=== PATIENT | female | born 1955 | race Caucasian/White ===

== ENCOUNTER 2020-06-03 11:29 | Emergency (ER) | payer MEDICARE, OTHER, SELFPAY ==
--- NOTE | ~2020-06-03 | XR_ITS ---
EXAMINATION: XR shoulder RT min 2V DATE: 06/03/2020 12:28 INDICATION: Right shoulder pain. TECHNIQUE: 4 views of right shoulder were obtained. COMPARISON: None. FINDINGS: Bone alignment is normal. No fracture. There is mild osteoarthritis of acromioclavicular feliciano int and glenohumeral joint. A left internal jugular port is seen with tip at the superior cavoatrial junction. IMPRESSION: 1. Mild polyarticular osteoarthritis. Reviewed, dictated and finalized at location A.
[2020-06-03 11:31] VITALS: BP 167/75; PULSE 69; RESP 19; TEMP 36.1; O2SAT 100
--- NOTE | 2020-06-03 12:01 | ED.UPPEXIN ---
HPI - Extremity Injury (Upper) General Chief Complaint: Extremity Injury, Upper Stated Complaint: shoulder injury Time Seen by Provider: 06/03/20 11:38 Source: patient Mode of arrival: ambulatory Limitations: no limitations History of Present Illness HPI narrative: This is a 65 year old female that presents to the ER for right shoulder pain x 1 week. Reports she was gardening and lost her balance and fell and caught herself with her right arm. Reports since she has had right shoulder pain. Worse with movement and relieved with rest. Took her home [place] and muscle relaxer with relief. Denies other injuries, hitting her head, loss of consciousness, or numbness. Related Data Home Medications Medication Instructions Recorded Confirmed calcium carbonate 600 mg calcium 600 mg PO DAILY 01/31/20 (1,500 mg) tablet celecoxib 200 mg capsule 200 mg PO DAILY 01/31/20 cetirizine 10 mg tablet 10 mg PO DAILY 01/31/20 cholecalciferol (vitamin D3) 250 10,000 unit PO DAILY 01/31/20 mcg (10,000 unit) capsule citalopram 40 mg tablet 30 mg PO DAILY tablet 01/31/20 clonazepam 0.5 mg tablet 0.5 mg PO DAILY 01/31/20 cromolyn 4 % eye drops 1 drop EACH EYE QID 01/31/20 cyclobenzaprine 10 mg tablet 10 mg PO BID tablet 01/31/20 docusate sodium 100 mg tablet 100 mg PO DAILY 01/31/20 fluticasone propionate 50 1 spray NASAL DAILY 01/31/20 mcg/actuation nasal spray,suspension guaifenesin 600 mg tablet, 600 mg PO BID 01/31/20 extended release 12 hr hydrocodone 5 mg-acetaminophen 325 1 tablet PO Q8H PRN 01/31/20 mg tablet hydrocortisone acetate 25 mg 25 mg RECTAL DAILY PRN 01/31/20 rectal suppository levothyroxine 75 mcg tablet 75 mcg PO DAILY 01/31/20 lidocaine 3 % topical cream 1 applic TOPICAL DAILY PRN gm 01/31/20 losartan 100 mg tablet 100 mg PO DAILY 01/31/20 nifedipine 90 mg tablet,extended 90 mg PO DAILY 01/31/20 release olopatadine 0.2 % eye drops 1 drop EACH EYE DAILY 01/31/20 omeprazole 40 mg capsule,delayed 40 mg PO DAILY 01/31/20 release promethazine 25 mg tablet 25 mg PO TID PRN 01/31/20 propranolol 160 mg capsule,24 160 mg PO DAILY 01/31/20 hr,extended release ropinirole 0.5 mg tablet 0.5 mg PO DAILY tablet 01/31/20 vit cap PO 01/31/20 C,E,zinc,Us-nqokz-8-lutein-zeaxanthin 250 mg-2.5 mg-0.5 mg capsule zolpidem 5 mg tablet 5 mg PO ONCE PRN 01/31/20 Allergies Allergy/AdvReac Type Severity Reaction Status Date / Time aripiprazole Allergy Severe Other Verified 03/23/18 14:33 pregabalin Allergy Severe Other Verified 03/23/18 14:33 azathioprine Allergy Intermediate NAUSEOUS,BLEEDING, Verified 06/11/13 15:03 FEBRILE bupropion Allergy Intermediate Other Verified 03/23/18 14:33 amitriptyline Allergy Mild Swelling Verified 01/30/20 15:26 duloxetine Allergy Mild Swelling Verified 01/30/20 15:26 AZATHIOPRINE SODIUM Allergy Intermediate NAUSEOUS,BLEEDING, Uncoded 06/11/13 15:03 FEBRILE Review of Systems Review of Systems: Narrative: CONSTITUTIONAL: Denies fever CARDIOVASCULAR: Denies chest pain MUSCULOSKELETAL: Reports joint pain, and myalgia. NEUROLOGIC: Denies numbness All systems reviewed & are unremarkable except as noted in HPI and below PMFSH Past Medical History Medical History (Updated 06/03/20 @ 13:00 by Nicole Medrano PA-C) Allergic rhinitis Anemia Anxiety Blood in urine Breast lump or mass Cervicalgia Depression Eczema Edema Fibromyalgia GERD (gastroesophageal reflux disease) Hemorrhoids High cholesterol Hypertension Hypothyroidism Insomnia Lumbago Osteoarthritis, knee Osteopenia Ovarian cyst, left Palpitation Polymyalgia Type 2 diabetes mellitus Surgical History Surgical History (Updated 01/31/20 @ 14:20 by Sulaiman Hussein CMA) History of hysterectomy History of partial mastectomy of both breasts Family History Family History (Updated 01/30/20 @ 15:36 by Sulaiman Hussein CMA) Other Cerebrovascular accident Heart disease Social
[2020-06-03 13:29] VITALS: BP 132/60; PULSE 76; RESP 18; O2SAT 99
== END 2020-06-03 13:32 | disposition home or self-care (01) ==
PROVIDERS: Emergency Provider Family Medicine
DX: M25.511 Pain in right shoulder (principal); Z86.2 Personal history of diseases of the blood and blood-forming organs and certain disorders involving the immune mechanism; M79.7 Fibromyalgia; K21.9 Gastro-esophageal reflux disease without esophagitis; E78.00 Pure hypercholesterolemia, unspecified; I10 Essential (primary) hypertension; E03.9 Hypothyroidism, unspecified; M17.10 Unilateral primary osteoarthritis, unspecified knee; M19.011 Primary osteoarthritis, right shoulder; E11.9 Type 2 diabetes mellitus without complications; M85.80 Other specified disorders of bone density and structure, unspecified site; M35.3 Polymyalgia rheumatica; F41.9 Anxiety disorder, unspecified; F32.9 Major depressive disorder, single episode, unspecified
CPT/HCPCS: 73030; 99283

== ENCOUNTER 2021-05-25 13:30 | Outpatient (CLI) | payer MEDICARE, OTHER, SELFPAY ==
[2021-05-25 14:24] LABS: Cholesterol 146 mg/dL (0-200); HDL Direct 39 mg/dL; Triglycerides 226 mg/dL (<150)
[2021-05-25 14:35] LABS: LDL Cholesterol Direct 64 mg/dL
[2021-05-25 15:31] LABS: Folic Acid 14.6 ng/mL (2.76->20)
[2021-05-25 17:49] LABS: Vitamin D 25 Hydroxy 57.1 ng/mL
== END 2021-05-25 13:31 | disposition home or self-care (01) ==
LOC: ANHLAB 13:38
PROVIDERS: PCP Internal Medicine; Visit Provider Physician Assistant
DX: R53.83 Other fatigue (principal); E78.5 Hyperlipidemia, unspecified; E55.9 Vitamin D deficiency, unspecified
CPT/HCPCS: 36415; 80061; 82306; 82607; 82746; 84443

== ENCOUNTER 2021-07-28 17:20 | Outpatient (CLI) | payer MEDICARE, OTHER, SELFPAY ==
[2021-07-28 18:34] LABS: Free T4 Free Thyroxine 1.24 ng/mL (0.78-2.19)
== END 2021-07-28 17:21 | disposition home or self-care (01) ==
LOC: ANHLAB 17:25
PROVIDERS: PCP Internal Medicine; Visit Provider Physician Assistant
DX: E03.9 Hypothyroidism, unspecified (principal)
CPT/HCPCS: 36415; 84439; 84443

== ENCOUNTER 2021-08-19 | Day surgery (SDC) | payer MEDICARE, OTHER, SELFPAY ==
[2021-08-10 10:44] VITALS: BMI 38.5
[2021-08-19 06:12] VITALS: BP 138/69; PULSE 80; RESP 18; TEMP 35.9; O2SAT 98; BMI 37.0
--- NOTE | 2021-08-19 06:47 | PM.HPGS ---
History of Present Illness History of Present Illness Consent: Risks, benefits, and alternatives have been discussed and questions answered. Patient agrees to proceed with procedure. Chief complaint: family hx malignant CA Narrative: Lakia Barton is a 66 year old female Her for colon cancer screening. She has history of breast cancer and having markers that show increased risk for other malignancies Review of Systems Review of Systems: All systems reviewed & are unremarkable except as noted in HPI and below PMFSH Past Medical History Medical History Allergic rhinitis Anemia Anxiety Blood in urine Body mass index (BMI) of 37.0 to 37.9 in adult Breast cancer Breast lump or mass Cervicalgia Depression Deviated septum Eczema Edema Fibromyalgia GERD (gastroesophageal reflux disease) Hemorrhoids High cholesterol Hypertension Hypothyroidism Insomnia Lumbago Osteoarthritis, knee Osteopenia Ovarian cyst, left Palpitation Polymyalgia Type 2 diabetes mellitus Surgical History Surgical History History of cataract surgery History of hysterectomy History of partial mastectomy of both breasts History of removal of ovarian cyst History of surgical removal of meniscus of knee History of tonsillectomy Family History Family History Father Diabetes mellitus Hypertension Heart disease Cerebrovascular accident Mother Hypertension Depression Anxiety Sibling Anxiety Depression Hypertension Social History Social History Smoking status: Never smoker Alcohol intake: never Substance use: never Living arrangements: alone Gender identity (if verbalized by the patient): Female Spiritual care concerns: No Meds Home Medications and Allergies Home Medications Medication Instructions Recorded Confirmed Type calcium carbonate 600 mg calcium 600 mg PO DAILY 01/31/20 08/19/21 History (1,500 mg) tablet cetirizine 10 mg tablet 10 mg PO DAILY 01/31/20 08/19/21 History cholecalciferol (vitamin D3) 250 10,000 unit PO DAILY 01/31/20 08/19/21 History mcg (10,000 unit) capsule citalopram 40 mg tablet 30 mg PO DAILY tablet 01/31/20 08/19/21 History cromolyn 4 % eye drops 1 drop EACH EYE QID 01/31/20 08/19/21 History cyclobenzaprine 10 mg tablet 10 mg PO BID PRN tablet 01/31/20 08/19/21 History losartan 100 mg tablet 100 mg PO DAILY 01/31/20 08/19/21 History nifedipine 90 mg tablet,extended 90 mg PO DAILY 01/31/20 08/19/21 History release olopatadine 0.2 % eye drops 1 drop EACH EYE DAILY 01/31/20 08/19/21 History promethazine 25 mg tablet 25 mg PO TID PRN 01/31/20 08/19/21 History propranolol 160 mg capsule,24 160 mg PO DAILY 01/31/20 08/19/21 History hr,extended release ropinirole 0.5 mg tablet 0.5 mg PO DAILY tablet 01/31/20 08/19/21 History anastrozole 1 mg tablet 1 mg PO DAILY 06/09/20 08/19/21 History carboxymethylcellulose sodium 0.5 1 drp EACH EYE BID 04/27/21 08/19/21 History % eye drops simvastatin 10 mg tablet 10 mg PO DAILY 04/27/21 08/19/21 History hydrocortisone acetate 25 mg 25 mg RECTAL DAILY PRN #12 ea 06/21/21 08/19/21 Rx rectal suppository hydrocodone 5 mg-acetaminophen 325 1 tablet PO Q8H PRN #45 tablet 06/29/21 08/19/21 Rx mg tablet clonazepam 0.5 mg tablet 0.5 mg PO DAILY #90 tablet 07/21/21 08/19/21 Rx diclofenac sodium 1 % topical gel 2 g TOPICAL QID PRN #100 g 07/21/21 08/19/21 Rx docusate sodium 100 mg tablet 100 mg PO QHS #90 tablet 07/21/21 08/19/21 Rx fluticasone propionate 50 2 spray NASAL DAILY #48 g 07/21/21 08/19/21 Rx mcg/actuation nasal spray,suspension guaifenesin 600 mg tablet, 600 mg PO BID PRN #180 tablet 07/21/21 08/19/21 Rx extended release 12 hr lidocaine 3 % topical cream 1 applic TOPICAL DAILY PRN #85 g 07/21/21 0
[2021-08-19] MEDS: LACTATED RINGERS 1,000 ML 150 ML IV CONT (06:49)
[2021-08-19 06:50] LABS: Glucose Point of Care 214 mg/dl (65-105)
--- NOTE | 2021-08-19 07:10 | WPDANESEPPF ---
Anes - Initial Pre Proc Eval Procedure: Operation Date: 08/19/21 07:30 Proposed Procedures p Screening Colonoscopy - Singh Birmingham MD Date/Time: 08/19/21 07:10 Surgeon: Singh Birmingham MD Pre Op Diagnosis: family hx malignant CA Patient Data Age: 66 Gender: F Height: 1.65 m Weight: 101.1 kg Last Vital Signs Temp 96.6 F L 08/19/21 06:12 Pulse 80 08/19/21 06:12 Resp 18 08/19/21 06:12 BP 138/69 08/19/21 06:12 Pulse Ox 98 08/19/21 06:12 Allergies Allergy/AdvReac Type Severity Reaction Status Date / Time aripiprazole Allergy Severe Other Verified 08/19/21 06:23 pregabalin Allergy Severe Other Verified 08/19/21 06:23 adhesive tape Allergy Intermediate Rash Verified 08/19/21 06:23 azathioprine Allergy Intermediate NAUSEOUS,BLEEDING, Verified 08/19/21 06:23 FEBRILE bupropion Allergy Intermediate Other Verified 08/19/21 06:23 amitriptyline Allergy Mild Swelling Verified 08/19/21 06:23 duloxetine Allergy Mild Swelling Verified 08/19/21 06:23 AZATHIOPRINE SODIUM Allergy Intermediate NAUSEOUS,BLEEDING, Uncoded 08/19/21 06:23 FEBRILE Home Medications Medication Instructions Recorded Confirmed Type calcium carbonate 600 mg calcium 600 mg PO DAILY 01/31/20 08/19/21 History (1,500 mg) tablet cetirizine 10 mg tablet 10 mg PO DAILY 01/31/20 08/19/21 History cholecalciferol (vitamin D3) 250 10,000 unit PO DAILY 01/31/20 08/19/21 History mcg (10,000 unit) capsule citalopram 40 mg tablet 30 mg PO DAILY tablet 01/31/20 08/19/21 History cromolyn 4 % eye drops 1 drop EACH EYE QID 01/31/20 08/19/21 History cyclobenzaprine 10 mg tablet 10 mg PO BID PRN tablet 01/31/20 08/19/21 History losartan 100 mg tablet 100 mg PO DAILY 01/31/20 08/19/21 History nifedipine 90 mg tablet,extended 90 mg PO DAILY 01/31/20 08/19/21 History release olopatadine 0.2 % eye drops 1 drop EACH EYE DAILY 01/31/20 08/19/21 History promethazine 25 mg tablet 25 mg PO TID PRN 01/31/20 08/19/21 History propranolol 160 mg capsule,24 160 mg PO DAILY 01/31/20 08/19/21 History hr,extended release ropinirole 0.5 mg tablet 0.5 mg PO DAILY tablet 01/31/20 08/19/21 History anastrozole 1 mg tablet 1 mg PO DAILY 06/09/20 08/19/21 History carboxymethylcellulose sodium 0.5 1 drp EACH EYE BID 04/27/21 08/19/21 History % eye drops simvastatin 10 mg tablet 10 mg PO DAILY 04/27/21 08/19/21 History hydrocortisone acetate 25 mg 25 mg RECTAL DAILY PRN #12 ea 06/21/21 08/19/21 Rx rectal suppository hydrocodone 5 mg-acetaminophen 325 1 tablet PO Q8H PRN #45 tablet 06/29/21 08/19/21 Rx mg tablet clonazepam 0.5 mg tablet 0.5 mg PO DAILY #90 tablet 07/21/21 08/19/21 Rx diclofenac sodium 1 % topical gel 2 g TOPICAL QID PRN #100 g 07/21/21 08/19/21 Rx docusate sodium 100 mg tablet 100 mg PO QHS #90 tablet 07/21/21 08/19/21 Rx fluticasone propionate 50 2 spray NASAL DAILY #48 g 07/21/21 08/19/21 Rx mcg/actuation nasal spray,suspension guaifenesin 600 mg tablet, 600 mg PO BID PRN #180 tablet 07/21/21 08/19/21 Rx extended release 12 hr lidocaine 3 % topical cream 1 applic TOPICAL DAILY PRN #85 g 07/21/21 08/19/21 Rx metformin 500 mg tablet 500 mg PO BID #180 tablet 07/21/21 08/19/21 Rx omeprazole 40 mg capsule,delayed 40 mg PO DAILY #90 cap 07/21/21 08/19/21 Rx release vit 1 cap PO DAILY cap 07/21/21 08/19/21 History C,E,zinc,Fw-oobgz-4-lutein-zeaxanthin 250 mg-2.5 mg-0.5 mg capsule zolpidem 5 mg tablet 5 mg PO QHS PRN #60 tablet 07/21/21 08/19/21 Rx levothyroxine 125 mcg tablet 125 mcg PO DAILY #30 tablet 07/30/21 08/19/21 Rx Laboratory Tests 08/19/21 06:40 POC Capillary Glucose 214 mg/dl H mg/dl (65-105) Patient hx anesthesia problems: none Family hx anesthesia problems: none PMFSH Past Medical History Medical History Allergic rhinitis Anemia Anxiety Blood in urine Body mass index (BMI) of 37.0 to 37.9 in adult Breast cancer Breast l
[2021-08-19 07:48] VITALS: BP 117/71; PULSE 70; RESP 16; O2SAT 97
[2021-08-19 07:58] VITALS: BP 129/78; PULSE 72; RESP 16; O2SAT 97
[2021-08-19 08:08] VITALS: BP 118/61; PULSE 72; RESP 20; O2SAT 97
--- NOTE | 2021-08-19 08:52 | SUR.PHASEII ---
0815 unable to reach patients' driver/refuse collector, awaiting call back and ride home
== END 2021-08-19 08:44 | disposition home or self-care (01) ==
PROVIDERS: PCP Internal Medicine; Visit Provider Internal Medicine Gastroenterology
PROC: 0DJD8ZZ Inspection of Lower Intestinal Tract, Via Natural or Artificial Opening Endoscopic (ICD-10-PCS; CPT 45378; principal; 2021-08-19 07:30)
DX: Z12.11 Encounter for screening for malignant neoplasm of colon (principal); Z85.3 Personal history of malignant neoplasm of breast; Z15.09 Genetic susceptibility to other malignant neoplasm; K21.9 Gastro-esophageal reflux disease without esophagitis; I10 Essential (primary) hypertension; E78.00 Pure hypercholesterolemia, unspecified; M79.7 Fibromyalgia; F41.8 Other specified anxiety disorders; E03.9 Hypothyroidism, unspecified; E11.9 Type 2 diabetes mellitus without complications; Z79.811 Long term (current) use of aromatase inhibitors; Z79.84 Long term (current) use of oral hypoglycemic drugs; Z79.891 Long term (current) use of opiate analgesic
CPT/HCPCS: G0121; 82948; J2001; J2704; J7120

== ENCOUNTER 2021-10-25 11:33 | Outpatient (CLI) | payer MEDICARE, OTHER, SELFPAY ==
[2021-10-25 12:34] LABS: Free T4 Free Thyroxine 1.65 ng/mL (0.78-2.19)
== END 2021-10-25 11:34 | disposition home or self-care (01) ==
LOC: ANHLAB 11:35
PROVIDERS: PCP Internal Medicine; Visit Provider Physician Assistant
DX: E03.9 Hypothyroidism, unspecified (principal)
CPT/HCPCS: 36415; 84439; 84443

== ENCOUNTER 2022-05-25 14:30 | Outpatient (RCR) | payer MEDICARE, OTHER, SELFPAY ==
[2022-04-28 12:25] VITALS: BP_SYST 150
--- NOTE | 2022-04-28 13:28 | PTOPEVAL ---
PHYSICAL THERAPY EVALUATION AND PLAN OF CARE 04-28-22 Thank you for referring Lakia Barton to [facility], for the diagnosis of L shoulder pain. Reyna is scheduled to be seen for therapy? 2 x/week for 4 weeks. Please review, sign, date and return this plan of care SNOW. I agree with and certify that the following plan of care is medically necessary. Referring Physician Date Attending Provider: Christiano So MD Past Medical History Source of Past Medical History Recalled from Previous Visit, Confirmed with Patient/Family Neurological History Hx Neurological Disorders No Significant History Cardiovascular History Hx Hypercholesterolemia Yes: med control Hx Hypertension Yes: meds control Respiratory History Hx Respiratory Disorders No Significant History Gastrointestinal History Hx Gastroesophageal Reflux Disease Yes Genitourinary History Hx Genitourinary Disorders No Significant History Musculoskeletal History Hx Arthritis Yes: hands, arms, knees, everywhere Hx Fibromyalgia Yes Hx Orthopedic Surgery Yes: Right knee arthroscopy X2 Hx Other Musculoskeletal Disorders Yes: polymyalgia---all over effected; fall with R clavicle fracture Hematological History Hx Anemia Yes Endocrine History Hx Diabetes Yes: meds Hx Hypothyroidism Yes: meds HEENT History Hx Cataracts Yes: Bilateral cataract removal with lens implantation Integumentary History Hx Eczema Yes Psychosocial History Hx Anxiety Yes Hx Depression Yes Pain History Has Past Pain Affected Your Daily Life Yes Anesthesia History Hx Anesthesia Reactions No Significant History Other History Hx Cancer Yes: Breast Cancer- B mastectomy 2019 Hx Chemotherapy Yes Hx Implanted Device Yes: Left chest Port, Hx Radiation Therapy Yes Hx Other Medical Conditions Yes: B UE lymphedema Evaluation Information Diagnosis pain L shoulder Onset March 27, 2022 Subjective Information gradual increase in pain in Query Text:As Reported By Patient/ shoulder, problems pulling up Family blanket in bed and reaching out to the side table for drink, could not lift arm; had injection- helped shoulder pain Diagnostic Tests X-Rays For This Problem Yes: per report mild A-C degenerative changes Prior Level of Function Activity Level (Last 3 Months) Occupation
--- NOTE | 2022-05-16 13:46 | PCPTNOTE ---
Patient called & cancelled scheduled appointment this date due to she hasn't slept all night & needs to sleep.
--- NOTE | 2022-05-23 13:30 | PCPTNOTE ---
Patient called & cancelled scheduled appointment this date due to her feet hurting.
--- NOTE | 2022-05-25 15:08 | PTOPEVAL ---
PHYSICAL THERAPY DISCHARGE REPORT 05-25-22 Refer to the clinical summary below for her status today, compared to the initial evaluation. She has improved with increased strength and ROM of her L shoulder, but continues to have pain. Discharge PT at this time for her L shoulder from an orthopedic view, but PT will continue for lymphedema treatment under orders from her oncologist. Thank you for referring Lakia Barton to [facility].? Please review, sign, date and return this Discharge report SNOW. I agree with and certify that the following plan of care is medically necessary. Referring Physician Date Attending Provider: Christiano So MD Subjective Information Reyna reports: shoulder is Query Text:As Reported By Patient/ slightly better, but never Family goes away--little better or worse, but always there; is doing the home exercises; can reach up with L arm to get to kitchen cabinet; can reach out to the side for her drink on the side table; feels like shoulder treatment is best it is going to be--need to get the lymphedema treatment for her shoulder; Pain Assessment Pain Scale Pain Scale Used Numeric (1 - 10) Self Report Pain Assessment Left Shoulder(s) Reported Pain Level 2 Radicular Pain Location sometimes feels like bone hurting Pain Frequency Chronic,Continuous Other Pain Description crunching, crepitus, sharp pain; into neck and upper traps Lowest Pain Intensity 1 Greatest Pain Intensity 8 Other Pain Aggravating Factors does not matter what she does- -hurts sometimes without doing anything Pain Behaviors Grimacing,Guarding Additional Pain Score Comments reports chronic pain/ fibromyalgia pain--flared up and having a bad day today; discussed aquatic exercise as a method of exercise and fitness; she has ordered a swim spa for her home--not sure when they are going to start it; and has done water exercises in the past; Interventions Used Interventions Used By Clinicians Education,Exercise Pain Relief Interventions Used By Inactivity/Rest,Lying Supine Patient Other Alleviating Interventions muscle cream, stim unit; self
== END 2022-05-26 11:16 | disposition home or self-care (01) ==
LOC: ANHPT 14:30
PROVIDERS: PCP Physician Assistant; Visit Provider Orthopaedic Surgery
DX: M25.511 Pain in right shoulder (principal); G89.29 Other chronic pain
CPT/HCPCS: 97110; 97112; 97140; 97161

== ENCOUNTER 2022-06-20 13:43 | Outpatient (CLI) | payer MEDICARE, OTHER, SELFPAY ==
[2022-06-20 14:16] LABS: Hematocrit 34.5 % (37.0-47.0); Hemoglobin 11.6 g/dL (12.0-15.0); Mean Corpuscular HGB Conc 33.6 g/dl (32-36); Mean Corpuscular Volume 89.1 fl (80-100); Platelet Count Result 282 k/mm3 (150-375); Red Blood Count 3.87 M/mm3 (4.2-5.4); Red Cell Distribution Width 13.5 % (11.5-14.5); White Blood Count 6.5 K/mm3 (4.5-10.0)
[2022-06-20 14:28] LABS: Alanine Aminotransferase 54 U/L (6-35); Albumin Level 4.3 g/dL (3.5-5.1); Alkaline Phosphatase 89 U/L (38-126); Anion Gap 12 mmol/L (8-16); Aspartate Amino Transferase 45 U/L (14-36); Bilirubin,Total 0.6 mg/dL (0.2-1.3); Blood Urea Nitrogen 17 mg/dL (7-17); Calcium 9.2 mg/dL (8.4-10.2); Carbon Dioxide 24 mmol/L (22-30); Chloride 101 mmol/L (98-107); Cholesterol 152 mg/dL (0-200); Estimated Glomerular Filt Rate > 60; Glucose 164 mg/dL (65-110); HDL Direct 38 mg/dL; Potassium 4.5 mmol/L (3.4-5.0); Sodium 137 mmol/L (137-145); Triglycerides 226 mg/dL (<150)
[2022-06-20 14:39] LABS: LDL Cholesterol Direct 62 mg/dL
[2022-06-20 14:56] LABS: Free T4 Free Thyroxine 1.88 ng/mL (0.78-2.19); Vitamin D 25 Hydroxy 40.6 ng/mL
[2022-06-20 15:33] LABS: Folic Acid 6.6 ng/mL (2.76->20)
[2022-06-21 11:33] LABS: Hemoglobin A1C 7.4 % (<5.7)
== END 2022-06-20 13:44 | disposition home or self-care (01) ==
LOC: ANHLAB 13:45
PROVIDERS: PCP Physician Assistant; Visit Provider Physician Assistant
DX: E78.5 Hyperlipidemia, unspecified (principal); R53.83 Other fatigue; E55.9 Vitamin D deficiency, unspecified; E03.9 Hypothyroidism, unspecified; E11.9 Type 2 diabetes mellitus without complications
CPT/HCPCS: 36415; 80053; 80061; 82306; 82607; 82746; 83036; 84439; 84443; 85027

== ENCOUNTER 2022-06-30 15:15 | Outpatient (RCR) | payer MEDICARE, OTHER, SELFPAY ==
--- NOTE | 2022-06-09 15:43 | PTOPEVAL ---
Thank you for referring Lakia Barton to [facility].? She is scheduled to be seen for therapy? 2 x/week for 6 weeks. Please review, sign, date and return this plan of care SNOW. I agree with and certify that the following plan of care is medically necessary. Referring Physician Date Attending Provider: Divina Quinones, ANDREEA Past Medical History Source of Past Medical History Recalled from Previous Visit, Confirmed with Patient/Family Neurological History Hx Neurological Disorders No Significant History Cardiovascular History Hx Hypercholesterolemia Yes: med control Hx Hypertension Yes: meds control Respiratory History Hx Respiratory Disorders No Significant History Gastrointestinal History Hx Gastroesophageal Reflux Disease Yes Genitourinary History Hx Genitourinary Disorders No Significant History Musculoskeletal History Hx Arthritis Yes: hands, arms, knees, everywhere Hx Fibromyalgia Yes Hx Orthopedic Surgery Yes: Right knee arthroscopy X2 Hx Other Musculoskeletal Disorders Yes: polymyalgia---all over effected; fall with R clavicle fracture Hematological History Hx Anemia Yes Endocrine History Hx Diabetes Yes: meds Hx Hypothyroidism Yes: meds HEENT History Hx Cataracts Yes: Bilateral cataract removal with lens implantation Integumentary History Hx Eczema Yes Psychosocial History Hx Anxiety Yes Hx Depression Yes Pain History Has Past Pain Affected Your Daily Life Yes Anesthesia History Hx Anesthesia Reactions No Significant History Other History Hx Cancer Yes: Breast Cancer- B mastectomy 2019 Hx Chemotherapy Yes Hx Implanted Device Yes: Left chest Port, Hx Radiation Therapy Yes Hx Other Medical Conditions Yes: B UE lymphedema Evaluation Information Diagnosis R UE and chest wall lymphedema Onset Dec 2021 Prior Level of Function Activity Level (Last 3 Months) Occupation retired Hand Dominance Right Activity of Daily Living Ability Independent Indoor/Home Mobility Independent Community Mobility Independent Stairs Ability Independent Functional Cognition (Planning, Shopping Independent , Taking Medications) Cooking Yes Cleaning Yes Laundry Yes Shopping Yes Driving Yes Home Setting Home Type
--- NOTE | 2022-06-09 16:09 | PCPTNOTE ---
pt signed consent and her eval was faxed to [facility] for insurance approval for home intermittent compression pump.
--- NOTE | 2022-06-09 16:30 | PCPTNOTE ---
delay in initiation of treatment due to therapist not have any availability. Will call pt if there are any openings prior to 06-28-22.
--- NOTE | 2022-07-04 16:59 | PCPTNOTE ---
Patient called & cancelled scheduled appointment this date due to having COVID.
--- NOTE | 2022-07-07 15:08 | PCPTNOTE ---
Patient did not show up for scheduled appointment this date. Called and left voicemail about missed appointment. Reminded of upcoming appointment on Monday07/11/22 @14:30. Past cancelled previously in the week due to COVID. Unsure if Pt needed to cancel this one as well, left call back for Pt in order to get this sorted. This is Pt's first N/S.
--- NOTE | 2022-07-12 14:59 | PCPTNOTE ---
pt called and left message, canceled all appointments due to being ill with covid. I called pt, she is very ill and not sure when she can return; discussed with her, chart will be open for few more weeks, for her to call if ready to return.
--- NOTE | 2022-08-04 13:58 | PCPTNOTE ---
DISCHARGE REPORT 08-04-22 Attending Provider: ANDREEA Baxter Patient:Lakia Barton Date of :1955 Ms. Barton has not returned for any further treatments since 06/30/2022, therefore she will be discharged at this time. She has received 3 PT sessions, from June 09 to June 30, then was ill and canceled therapy. Discharge PT services.
== END 2022-08-05 09:24 | disposition home or self-care (01) ==
LOC: ANHPT 15:15
PROVIDERS: PCP Physician Assistant; Visit Provider Physician Assistant Medical
DX: I89.0 Lymphedema, not elsewhere classified (principal); C50.111 Malignant neoplasm of central portion of right female breast; Z17.0 Estrogen receptor positive status [ER+]
CPT/HCPCS: 97140; 97162

== ENCOUNTER 2022-12-29 14:16 | Outpatient (CLI) | payer MEDICARE, OTHER, SELFPAY ==
[2022-12-29 19:34] LABS: Hemoglobin A1C 7.7 % (<5.7)
== END 2022-12-29 14:17 | disposition home or self-care (01) ==
LOC: ANHLAB 14:18
PROVIDERS: PCP Physician Assistant; Visit Provider Physician Assistant
DX: E11.9 Type 2 diabetes mellitus without complications (principal)
CPT/HCPCS: 36415; 83036

== ENCOUNTER 2023-01-13 14:58 | Outpatient (CLI) | payer MEDICARE, OTHER, SELFPAY ==
[2023-01-13 15:30] LABS: Basophils Absolute Auto 0.1 K/mm3 (0.0-0.1); Basophils Percent Auto 0.9 % (0.2-1.2); Eosinophils Absolute Auto 0.4 K/mm3 (0-0.3); Eosinophils Percent Auto 6.3 % (0-4.4); Hematocrit 37.1 % (37.0-47.0); Hemoglobin 12.3 g/dL (12.0-15.0); Immature Granulocyte Absolute 0.02 K/mm3 (0.00-0.031); Immature Granulocyte Percent A 0.3 % (0-0.5); Lymphocytes Absolute Auto 1.84 K/mm3 (0.9-3.2); Lymphocytes Percent Auto 27.6 % (18.3-44.2); Mean Corpuscular HGB Conc 33.2 g/dl (32-36); Mean Corpuscular Hemoglobin 30.1 pg (26-34); Mean Corpuscular Volume 90.9 fl (80-100); Mean Platelet Volume 9.9 fl (7.4-10.4); Monocytes Absolute Auto 0.4 K/mm3 (0.1-0.6); Monocytes Percent Auto 5.3 % (2.6-8.5); Neutrophils Percent Auto 59.6 % (45.5-73.1); Platelet Count Result 292 k/mm3 (150-375); Red Blood Count 4.08 M/mm3 (4.2-5.4); Red Cell Distribution Width 13.1 % (11.5-14.5); White Blood Count 6.7 K/mm3 (4.5-10.0)
[2023-01-13 15:51] LABS: Alanine Aminotransferase 53 U/L (6-35); Albumin Level 4.4 g/dL (3.5-5.1); Alkaline Phosphatase 84 U/L (38-126); Anion Gap 12 mmol/L (8-16); Aspartate Amino Transferase 66 U/L (14-36); Bilirubin,Total 0.7 mg/dL (0.2-1.3); Blood Urea Nitrogen 13 mg/dL (7-17); CRP 0.8 mg/dL (<1.0); Calcium 8.8 mg/dL (8.4-10.2); Carbon Dioxide 22 mmol/L (22-30); Chloride 104 mmol/L (98-107); Estimated Glomerular Filt Rate > 60; Glucose 338 mg/dL (65-110); Sodium 138 mmol/L (137-145)
[2023-01-13 16:09] LABS: Erythrocyte Sedimentation Rate 63 mm/hr (0-20)
[2023-01-13 16:33] LABS: Rheumatoid Factor < 8.6 IU/ML (<12)
[2023-01-16 08:58] LABS: SS-A <1.0; SS-B <1.0
[2023-01-18 21:01] LABS: Anti Cyclic Citrullinated Pept <16 Units (<20)
== END 2023-01-13 14:59 | disposition home or self-care (01) ==
PROVIDERS: PCP Physician Assistant; Visit Provider Physician Assistant
DX: M35.3 Polymyalgia rheumatica (principal)
CPT/HCPCS: 36415; 80053; 85025; 85652; 86038; 86140; 86200; 86235; 86430

== ENCOUNTER 2023-04-25 16:51 | Outpatient (CLI) | payer MEDICARE, OTHER, SELFPAY ==
--- NOTE | ~2023-04-25 | US_ITS ---
EXAMINATION: US carotid duplex BI DATE: 04/25/2023 17:57 INDICATION: Syncope and collapse TECHNIQUE: Grayscale, color Doppler, and pulsed Doppler images of the cervical carotid arteries were obtained. The degree of vessel stenosis is placed in one of the following categories: normal, <50%, 5 0-69%, >=70% but less than near-occlusion, near-occlusion, or total occlusion. Note that percent sten osis relative to normal distal artery lumen diameter is indirectly measured from velocity measurement s as described by Darren, et al. Radiology 2003; 229:340-346. COMPARISON: None. FINDINGS: RIGHT: The right common carotid artery (CCA) peak systolic velocity (PSV) is 72 cm/s. The right internal car otid artery (ICA) PSV is 66 cm/s. The right ICA end-diastolic velocity (EDV) is 22 cm/s. The right IC A/CCA PSV ratio is 0.9. Grayscale and color Doppler images demonstrate no evident stenosis or plaque in the ICA. The external carotid artery (ECA) PSV is 90 cm/s. There is antegrade flow in the right ve rtebral artery. LEFT: The left CCA PSV is 77 cm/s. The left ICA PSV is 80 cm/s. The left ICA EDV is 31 cm/s. The left ICA/C CA PSV ratio is 1.0. Grayscale and color Doppler images demonstrate no evident stenosis or plaque in the ICA. The ECA PSV is 37 cm/s. There is antegrade flow in the left vertebral artery. IMPRESSION: 1. No evident plaque or stenosis in the right internal carotid artery. 2. No evident plaque or stenosis in the left internal carotid artery. Reviewed, dictated and finalized at location B.
== END 2023-04-25 16:52 | disposition home or self-care (01) ==
PROVIDERS: PCP Physician Assistant; Visit Provider Physician Assistant
DX: R55 Syncope and collapse (principal)
CPT/HCPCS: 93880

== ENCOUNTER 2023-07-17 12:49 | Outpatient (CLI) | payer MEDICARE, OTHER, SELFPAY ==
[2023-07-17 13:18] LABS: Basophils Percent Auto 0.6 % (0.2-1.2); Eosinophils Absolute Auto 0.3 K/mm3 (0-0.3); Eosinophils Percent Auto 4.5 % (0-4.4); Hematocrit 40.3 % (37.0-47.0); Hemoglobin 12.6 g/dL (12.0-15.0); Immature Granulocyte Absolute 0.01 K/mm3 (0.00-0.031); Immature Granulocyte Percent A 0.2 % (0-0.5); Lymphocytes Absolute Auto 2.46 K/mm3 (0.9-3.2); Lymphocytes Percent Auto 39.7 % (18.3-44.2); Mean Corpuscular HGB Conc 31.3 g/dl (32-36); Mean Corpuscular Hemoglobin 27.5 pg (26-34); Monocytes Absolute Auto 0.4 K/mm3 (0.1-0.6); Monocytes Percent Auto 6.8 % (2.6-8.5); Neutrophils Percent Auto 48.2 % (45.5-73.1); Platelet Count Result 324 k/mm3 (150-375); Red Blood Count 4.58 M/mm3 (4.2-5.4); Red Cell Distribution Width 14.1 % (11.5-14.5); White Blood Count 6.2 K/mm3 (4.5-10.0)
[2023-07-17 13:26] LABS: Hemoglobin A1C 6.5 % (<5.7)
[2023-07-17 13:38] LABS: Anion Gap 9 mmol/L (8-16); Blood Urea Nitrogen 21 mg/dL (7-17); Carbon Dioxide 31 mmol/L (22-30); Chloride 98 mmol/L (98-107); Sodium 138 mmol/L (137-145)
[2023-07-17 13:39] LABS: Alanine Aminotransferase 67 U/L (6-35); Albumin Level 4.5 g/dL (3.5-5.1); Alkaline Phosphatase 78 U/L (38-126); Aspartate Amino Transferase 67 U/L (14-36); Bilirubin,Total 0.7 mg/dL (0.2-1.3); Calcium 9.1 mg/dL (8.4-10.2); Cholesterol 164 mg/dL (0-200); Estimated Glomerular Filt Rate 50; Glucose 133 mg/dL (65-110); HDL Direct 31 mg/dL; Triglycerides 295 mg/dL (<150)
[2023-07-17 13:45] LABS: Free T4 Free Thyroxine 1.64 ng/mL (0.78-2.19); Vitamin D 25 Hydroxy 23.7 ng/mL
[2023-07-17 13:46] LABS: Creatinine Urine 102.7 mg/dL
[2023-07-17 13:49] LABS: LDL Cholesterol Direct 85 mg/dL
[2023-07-17 13:51] LABS: MALB Creatinine Ratio 7.6 mg/g (0-30); Microalbumin Urine Random 7.8 mg/L (0-16.7)
[2023-07-17 14:09] LABS: Thyroid Stimulating Hormone 0.626 uIU/mL (0.465-4.680)
[2023-07-17 14:45] LABS: Folic Acid 9.2 ng/mL (2.76->20)
== END 2023-07-17 12:50 | disposition home or self-care (01) ==
PROVIDERS: PCP Physician Assistant; Visit Provider Physician Assistant
DX: E11.9 Type 2 diabetes mellitus without complications (principal); E03.9 Hypothyroidism, unspecified; E55.9 Vitamin D deficiency, unspecified; R53.83 Other fatigue
CPT/HCPCS: 36415; 80053; 80061; 82043; 82306; 82607; 82746; 83036; 84439; 84443; 85025

== ENCOUNTER 2024-01-23 16:05 | Outpatient (CLI) | payer MEDICARE, OTHER, SELFPAY ==
[2024-01-23 16:59] LABS: Alanine Aminotransferase 31 U/L (6-35); Albumin Level 4.2 g/dL (3.5-5.1); Alkaline Phosphatase 73 U/L (38-126); Anion Gap 8 mmol/L (8-16); Aspartate Amino Transferase 37 U/L (14-36); Bilirubin,Total 0.7 mg/dL (0.2-1.3); Blood Urea Nitrogen 16 mg/dL (7-17); Calcium 9.3 mg/dL (8.4-10.2); Carbon Dioxide 24 mmol/L (22-30); Chloride 106 mmol/L (98-107); Estimated Glomerular Filt Rate > 60; Glucose 132 mg/dL (65-110); Potassium 3.9 mmol/L (3.4-5.0); Sodium 138 mmol/L (137-145)
[2024-01-23 21:56] LABS: Hemoglobin A1C 6.7 % (<5.7)
== END 2024-01-23 16:06 | disposition home or self-care (01) ==
LOC: ANHLAB 16:11
PROVIDERS: PCP Physician Assistant; Visit Provider Physician Assistant
DX: E11.9 Type 2 diabetes mellitus without complications (principal)
CPT/HCPCS: 36415; 80053; 83036

== ENCOUNTER 2024-10-11 13:45 | Outpatient (CLI) | payer MEDICARE, OTHER, SELFPAY ==
[2024-10-11 14:15] LABS: Basophils Absolute Auto 0.1 K/mm3 (0.0-0.1); Basophils Percent Auto 0.9 % (0.2-1.2); Eosinophils Absolute Auto 0.2 K/mm3 (0-0.3); Eosinophils Percent Auto 3.3 % (0-4.4); Hematocrit 38.3 % (37.0-47.0); Hemoglobin 12.9 g/dL (12.0-15.0); Immature Granulocyte Absolute 0.02 K/mm3 (0.00-0.031); Immature Granulocyte Percent A 0.3 % (0-0.5); Lymphocytes Absolute Auto 2.48 K/mm3 (0.9-3.2); Lymphocytes Percent Auto 35.3 % (18.3-44.2); Mean Corpuscular HGB Conc 33.7 g/dl (32-36); Mean Corpuscular Hemoglobin 31.4 pg (26-34); Mean Corpuscular Volume 93.2 fl (80-100); Mean Platelet Volume 9.8 fl (7.4-10.4); Monocytes Absolute Auto 0.5 K/mm3 (0.1-0.6); Monocytes Percent Auto 7.4 % (2.6-8.5); Neutrophils Absolute Auto 3.7 K/mm3 (1.3-6.7); Neutrophils Percent Auto 52.8 % (45.5-73.1); Platelet Count Result 299 k/mm3 (150-375); Red Blood Count 4.11 M/mm3 (4.2-5.4); Red Cell Distribution Width 13.2 % (11.5-14.5)
[2024-10-11 14:46] LABS: Vitamin D 25 Hydroxy 43.7 ng/mL
[2024-10-11 15:58] LABS: Alanine Aminotransferase 14 U/L (6-35); Albumin Level 4.4 g/dL (3.5-5.1); Alkaline Phosphatase 57 U/L (38-126); Anion Gap 12 mmol/L (4-12); Aspartate Amino Transferase 25 U/L (14-36); Bilirubin,Total 0.9 mg/dL (0.2-1.3); Blood Urea Nitrogen 15 mg/dL (7-17); Calcium 9.8 mg/dL (8.4-10.2); Carbon Dioxide 25 mmol/L (22-30); Chloride 100 mmol/L (98-107); Cholesterol 140 mg/dL (0-200); Estimated Glomerular Filt Rate 49; Glucose 88 mg/dL (65-110); HDL Direct 38 mg/dL; Sodium 137 mmol/L (137-145); Triglycerides 225 mg/dL (<150)
[2024-10-11 16:09] LABS: LDL Cholesterol Direct 49 mg/dL
[2024-10-11 16:29] LABS: Thyroid Stimulating Hormone < 0.015 uIU/mL (0.465-4.680)
== END 2024-10-11 13:46 | disposition home or self-care (01) ==
PROVIDERS: PCP Internal Medicine; Visit Provider Internal Medicine
DX: E78.5 Hyperlipidemia, unspecified (principal); E03.9 Hypothyroidism, unspecified; E11.9 Type 2 diabetes mellitus without complications; E55.9 Vitamin D deficiency, unspecified; J30.9 Allergic rhinitis, unspecified; R53.83 Other fatigue
CPT/HCPCS: 36415; 80053; 80061; 82306; 83036; 84443; 85025

== ENCOUNTER 2025-04-04 16:07 | Outpatient (CLI) | payer MEDICARE, OTHER, SELFPAY ==
--- OUTSIDE RECORDS SUMMARY | 2025-04-04 16:11 | XMS_ITS | Encounter Summary ---
Author Organization [facility] Address [address] [place] [address] Phone Care Team Providers Care Carding Supervisor Name Role Phone Sherine Alysamakayla Vanegas DO Primary Care Provider + [phone] Doug Brito MD Unavailable + [phone] Brielle Prakash MD PhD Unavailable [phone] Jun Mancilla MD Unavailable [phone] Fabiola Garrison MD Unavailable [phone] Shaye Kim MD Unavailable [phone] Franklin Krishnamurthy MD Unavailable Dena Gill MD Unavailable [phone] Rashad Gama MD Unavailable + [phone] SherineAlysa DO Primary Care Provider +[phone] Patricia Khoury MD Unavailable [phone] Rashad Gama MD Unavailable + [phone] Cristóbal Spence Primary Care Provider Martha Martinez NP Unavailable + [phone] Alysa Basurto DO Primary Care Provider +[phone] Cristóbal Spence Primary Care Provider Augustin Woodruff MD Unavailable [phone] Patricia Khoury MD Unavailable [phone] Zachary Cabral DO Primary Care Provider [phone] Encounter Details Date Type Department Care Team (Late st Contact Info) Description 02/18/2020 Telephone [facility] [place] [address] Lakeisha Tabares Social History Tobacco Use Types Packs/Day Years Used Date Smoking Tobacco: Never Smokeless Tobacco: Never Alcohol Use Standard Drinks/Week Comments No 0 (1 standard drink = 0.6 oz pur e alcohol) Comments No Sex and Gender Information Value Date Recorded Sex Assigned at Not on file 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 No / Unsure 02/20/2020 9:41 AM CDT documented as of this encounter Plan of Treatment Not on file documented as of this encounter Visit Diagnoses Not on filedocumented in this encounter Additional Health Concerns Infection Onset Date Last Indicated Resolved Time COVID: Suspected 06/15/2023 06/15/2023 06/15/2023 5:49 PM CDT documented as of this encounter Care Teams Carding Supervisor Relationship Specialty Start Date End Date Alysa Basurto DO PCP - General Family Medicine 12/10/19 11/08/21 Alysa Basurto DO PCP - General 11/11/21 03/27/22 Cristóbal Spence PA [address] [facility] [address] [place] [address] PCP - General Physician Equipment Planner 03/28/22 04/27/22 Alysa Basurto DO PCP - General 04/28/22 07/17/22 Cristóbal Spence PA [address] [facility] [address] [place] [address] PCP - General Physician Equipment Planner 07/18/22 11/06/24 Zachary Cabral DO [address] [facility] 21 [place] [address] PCP - General Internal Medicine 11/07/24 Doug Brito MD [address] [facility] [address] [place] [address] Referring Physician Plastic Surgery 01/08/20 Brielle Prakash MD PhD [address] [facility] [address] [place] [address] Radiation Oncologist Radiation Oncology 02/10/20 Jun Mancilla MD [address] [facility] [address] [place] [address] Surgeon General Surgery 02/20/20 Fabiola Garrison MD [address] [facility] [address] [place] [address] Radiation Oncologist Radiation Oncology 07/17/20 Shaye Kim MD [address] [place] [address] Surgeon Surgical Oncology 07/17/20 Franklin Krishnamurthy MD [address] [place] [address] Consulting Physician Medical Oncology 10/04/20 03/27/22 Dena Gill MD [address] [place] [address] Radiation Oncology 01/19/21 02/22/21 Rashad Gama MD [address] [place] [address] Consulting Physician Radiation Oncology 02/23/21 Patricia Khoury MD [address] [place] [address] Radiation Oncologist Radiation Oncology 03/23/22 Rashad Gama MD [address] [place] [address] Radiation Oncologist Radiation Oncology 03/23/22 2 Martha Martinez NP [address] [place] [address] [id number] Nurse Practitioner Medical Oncology 03/28/22 Augustin Woodruff MD [address] [place] [address] [id number] Consulting Physician General Surgery 04/06/23 Patricia Khoury MD [address] [place] [address] [phone] Radiation Oncologist Radiation Oncology 03/26/24 documented as of this encounter
--- OUTSIDE RECORDS SUMMARY | 2025-04-04 16:11 | XMS_ITS | Referral Summary ---
Author Organization [facility] [address] Address [address] [place] [address] Care Team Providers Care Aviation Metalsmith Name Role Phone Doug Brito MD Unavailable +- [phone] Jun Mancilla MD Unavailable [phone] Shaye Kim MD Unavailable [phone] Martha Martinez NP Unavailable +- [phone] Augustin Woodruff MD Unavailable [phone] Patricia Khoury MD Unavailable [phone] Zachary Cabral DO Primary Care Provider Allergies Active Allergy Reactions Criticality Noted Date Comments Adhesive Tape-Silicones Rash,Other (See comments) High 09/11/2019 Reaction: Unknown, Amitriptyline Swelling Medium 12/24/2019 Azathioprine Other (See comments) Low Gastrointestinal bleeding Duloxetine Swelling Medium 12/10/2019 Pregabalin Swelling Medium 12/10/2019 Methotrexate Swelling Medium 12/10/2019 Bupropion Unknown 12/10/2019 Suicidal thoughts Medications levothyroxine (SYNTHROID) 75 mcg tablet take 1 tablet by oral route every day 0 0 06/26/20 13 Active Additional Information Patient not taking.Reported on 10/29/2024 zolpidem (AMBIEN) 5 mg tablet take 1 tablet by ORAL route every day at bedtime 0 0 06/26/20 13 Active Additional Information Patient taking differently:5 mgoral Nightly, Reported on 10/29/2024 cetirizine (ZyrTEC) 10 mg tablet take 1 tablet by oral route every day 0 0 06/26/20 13 Active simvastatin (ZOCOR) 10 mg tablet take 1 tablet by oral route every day in the evening 0 0 06/26/20 13 Active Additional Information Patient taking differently:10 mgoral Nightly, Indications: hyperlipidemia, Reported on 10/29/2024 docusate sodium (COLACE) 100 mg capsule take 1 capsule by oral route twice a day as needed 0 0 02/24/20 17 Active Additional Information Patient taking differently:100 mgoral 2 times daily, Reported on 10/29/2024 clonazePAM (KlonoPIN) 0.5 mg tablet take 1 tablet by oral route 2 times every day 0 0 02/24/20 17 Active Additional Information Patient taking differently:0.5 mgoral As needed, Reported on 10/29/2024 citalopram (CeleXA) 10 mg tabletIndications: Anxiety with Depression Take 1 tablet (10 mg total) by mouth nightly Take with 20 mg to = 30 mg Active citalopram (CeleXA) 20 mg tabletIndications: Anxiety with Depression Take 1.5 tablets (30 mg total) by mouth nightly Take with 10 mg to = 30 mg Active losartan (COZAAR) 100 mg tablet Take 1 tablet (100 mg total) by mouth daily. 90 tablet 3 04/30/20 18 Active Additional Information Patient taking differently:100 mg oral Daily,Indications: hypertension, Reported on 10/29/2024 NIFEdipine (PROCARDIA XL/ADALAT CC) 90 mg 24 hr tablet Take 1 tablet (90 mg total) by mouth nightly Active omeprazole (PriLOSEC) 40 mg capsule Take 1 capsule (40 mg total) by mouth daily Active guaiFENesin ER (MUCINEX) 600 mg 12 hr tablet Take 1 tablet (600 mg total) by mouth 2 (two) times a day Active lidocaine HCl 2 % cream Apply 1 Dose topically as needed Active hydrocortisone (ANUSOL-HC) 25 mg suppository Insert 1 suppository (25 mg total) into the rectum 2 (two) times a day as needed for hemorrhoids Active olopatadine (PATADAY) 0.2 % ophthalmic solutionIndication s:Allergic Conjunctivitis Administer 1 drop into both eyes daily Active cromolyn (OPTICROM) 4 % ophthalmic solution Administer 1 drop into both eyes 2 (two) times a day Active carboxymethylcellu lose (REFRESH TEARS) 0.5 % ophthalmic solution Administer 1 drop into both eyes as needed Active cholecalciferol, vitamin D3, (VITAMIN D3 ORAL) Take 5,000 Units by mouth every morning Active cyclobenzaprine (FLEXERIL) 10 mg tablet Take 1 tablet (10 mg total) by mouth 3 (three) times a day 90 tablet 01/08/20 20 Active propranolol LA (INDERAL LA) 160 mg 24 hr capsule Take 1 capsule (160 mg total) by mouth nightly Active rOPINIRole (REQUIP) 0.5 mg tabletIndications: Restless Legs Syndrome Take 1 tablet (0.5 mg total) by mouth nightly Active calcium carbonate (CALCIUM 600 ORAL) Take 600 mg by mouth 2 (two) times a day Active HYDROcodone-acetam inophen (NORCO) 7.5-325 mg per tabletIndications: Pain Take 1 tablet by mouth every 6 (six) hours as needed for pain 30 tablet 07/03/20 20 Active Additional Information Patient not taking.Reported on 10/29/2024 triamcinolone (KENALOG) 0.1 % ointmentIndication s:Rash Apply topically 2 (two) times a day 30 g 1 04/27/20 22 Active metFORMIN (GLUCOPHAGE) 500 mg tablet Take 1 tablet (500 mg total) by mouth 2 (two) times a day with meals Active empagliflozin (JARDIANCE) 25 mg tabletIndications: type 2 diabetes mellitus Take 1 tablet (25 mg total) by mouth nightly Active HYDROcodone-acetam inophen (NORCO) 5-325 mg per tabletIndications: Pain Take 1-2 tablets by mouth every 6 (six) hours as needed for pain 6 tablet 04/06/20 23 Active benzonatate (TESSALON) 100 mg capsuleIndications :Cough Take 1 capsule (100 mg total) by mouth 3 (three) times a day as needed for cough 30 capsule 06/15/20 23 Active Additional Information Patient not taking.Reported on 10/29/2024 levothyroxine (SYNTHROID) 125 mcg tablet Take 1 tablet (125 mcg total) by mouth daily 04/05/20 24 Active tirzepatide (Mounjaro) 2.5 mg/0.5 mL pen injector Inject 0.5 mL (2.5 mg total) under the skin once a week 03/22/20 24 Active loteprednol (LOTEMAX) 0.5 % ophthalmic suspension Administer 1 drop into affected eye(s) 4 (four) times a day 12/20/19 24 Active tirzepatide (Mounjaro) 7.5 mg/0.5 mL pen injector Inject under the skin Active eszopiclone (LUNESTA) 3 mg tablet Take 1 tablet (3 mg total) by mouth nightly at bedtime 10/15/20 24 Active lidocaine (LIDODERM) 5 %Indications:Breas t pain UNWRAP AND APPLY 1 PATCH TO SKIN DAILY. REMOVE AND DISCARD PATCH WITHIN 12 HOURS OR DIRECTED BY 30 patch 2 02/15/20 25 Active anastrozole (ARIMIDEX) 1 mg tabletIndications: Malignant neoplasm of central portion of right breast in female, estrogen receptor positive (HCC) Take 1 tablet (1 mg total) by mouth daily 90 tablet 04/02/20 25 Active anastrozole (ARIMIDEX) 1 mg tabletIndications: Malignant neoplasm of central portion of right breast in female, estrogen receptor positive (HCC) Take 1 tablet (1 mg total) by mouth daily 90 tablet 1 10/30/20 24 025 Discontin ued(Reord er) Active Problems Problem Noted Date Diagnosed Date Upper respiratory tract infection 06/15/2023 Assessment & Plan (06/15/2023 5:50 PM CDT): Rapid covid and flu negative Tessalon prn Tylenol for aches, pains. Take per package directions Coricidin HBP as directed on package Increase fluids, especially decaffeinated ones (water) Follow up with PCP if persistent symptoms, ER if shortness of breath or chest pain Encounter for follow-up exam ination after completed treatment for malignant neoplasm 02/23/2021 Personal history of irradiation 02/23/2021 Neoplasm of right breast, re gional lymph node staging category pN0 per [place] Joint Committee on Cancer Staging Guidelines, 7th edition 09/01/2020 Pain in right axilla 08/24/2020 Bone disorder 06/18/2020 History of malignant neoplasm of breast 06/18/20 jail current use of aromatase inhibitor Persons encountering health services in other specified circumstances 06/16/2020 Physical deconditioning 05/11/2020 Encounter for person encountering health service s 02/19/2020 Breast infection 02/03/2020 Assessment & Plan (02/03/2020 9:43 AM CDT): - Infected right sided tissue expender, now removed. - Wound culture with GPCs and GNRs, speciation pending, but she is stable, afebrile and wounds are clear per surgery. - Leukocytosis improved from 23.7 to 18.5. Likely a delayed elevation after surgical drainage vs stress response. - Primary team plans discharge today on oral antibiotics: doxy and cipro which is appropriate given her lack of prior resistant cultures. The primary team will need follow up on culture sensitivities to ensure adequate coverage. - Pain control per primary team. - Continued management per the primary team, will sign off for now. Thank you for this consult. Malignant neoplasm of centra l portion of right breast in female, estrogen receptor positive ([facility]) 12/10/2019 Cancer Staging:Pathologic stage from 01/22/2020:Stage IIA(pT2, pN1a, cM0, G3, ER+, HI+, HER2-) - Signed by Brielle Prakash MD PhD on 02/10/2020 Assessment & Plan (02/03/2020 9:38 AM CDT): - Tissue expanders removed as above. Follows with Oncology clinic next week. No ongoing inpatient needs. 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 12/10/2019 Overview (01/08/2020): Added automatically from request for surgery [id number] JOSHUA on CPAP 09/11/2019 Chronic fatigue 09/11/2019 Polymyalgia rheumatica 09/11/2019 LEES (dyspnea on exertion) 04/30/2018 Essential hypertension 04/30/2018 Dyslipidemia 04/30/2018 Grade II hemorrhoids 10/26/2017 Obesity with body mass index 30 or greater 03/31 Overview (04/21/2017): Obesity (BMI 35.0-39.9 without comorbidity) Abnormal cardiovascular stress test 03/31/2017 Overview (04/21/2017): Abnormal stress test Chest pain on exertion 03/31/2017 Overview (04/21/2017): Exertional chest pain Fibrositis 08/12/2014 Overview (03/03/2017): Fibromyalgia Chronic kidney disease, stage 2 (mild) 2 Proteinuria 07/09/2012 Internal hemorrhoids with complication 2 Chondromalacia of patella 07/08/2010 Contusion of knee 07/08/2010 Immunizations Immunization Administration Dates Next Due Flucelvax Influenza Quad 09/03/2020 Influenza, Quadrivalent, Spl it, Preservative Free, Intramuscular 10/14/2019 Pneumococcal Polysaccharide PPV23 09/03/2020 Social History Tobacco Use Types Packs/Day Years Used Date Smoking Tobacco: Never Smokeless Tobacco: Never Tobacco Cessation:Counseling Given: Not Answered Alcohol Use Standard Drinks/Week Comments No 0 (1 standard drink = 0.6 oz pur e alcohol) AUDIT-C Answer Date Recorded Q1: How often do you have a drink containing alcohol? Never 04/06/2023 Q2: How many drinks containi ng alcohol do you have on a typical day when you are drinking? Patient does not drink Q3: How often do you have si x or more drinks on one occasion? Never 04/06/2023 Personal Safety Answer Date Recorded Have you ever been in or are you currently in a harmful physical or emotional relationship or is someone making you feel afraid or unsafe? 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36 08/24/2023 2:29 PM CDT Plan of Treatment Not on file Medical Devices Implanted Type Area Voice Network Engineer Device Identifier Shelf Expiration Date Model / Serial / Lot [employer] [id number] Alloderm Select [id number] Allograft Regenerative Thk.4-2.4mm Thick - [id number]$ - [id number] Implanted:Qty: 1 on 01/08/2020 by Shaye Kim MD at [facility] Breast Left: Breast [employer] 10/26/2021 [id number] / +[id number]$ / [id number] [employer] [id number] Alloderm Select [id number] Allograft Regenerative Thk.4-2.4mm Thick - [id number] - [id number] Implanted:Qty: 1 on 01/08/2020 by Shaye Kim MD at [facility] Breast Right: Breast [employer] 10/26/2021 [id number] / [id number] / [id number] Restorative Lenses Implanted:Qty: 2 Bilateral: Eye Description:2017, 2 of each Explanted Type Area Voice Network Engineer Device Identifier Shelf Expiration Date Model / Serial / Lot [employer] [id number]-11-[id number] Implant Mammary Natrelle Te Smooth [id number] With Fourte - [id number] - [id number] Implanted:Qty: 1 on 01/08/2020 by Shaye Kim MD at [facility] Explanted:Qty: 1 on 02/01/2020 by Doug Brito MD at [facility] Breast Left: Breast [employer] 04/08/2024 133S-MX-15 -T / [id number] / [id number] Description:Initial fill lauro unt-400cc [employer] [id number]-[id number] Implant Mammary Natrelle Te Smooth [id number]-[id number]-59-T With Fourte - [id number] - [id number] Implanted:Qty: 1 on 01/08/2020 by Shaye Kim MD at [facility] Explanted:Qty: 1 on 02/01/2020 by Doug Brito MD at [facility] Breast Right: Breast [employer] 02/28/2024 133S-MX-15 -T / [id number] / [id number] Description:Initial fill lauro unt-400cc [employer] [id number] Powerport Mri Airguard 8fr 1 Lumen Attachable Catheter Latex Free - [id number] Implanted:Qty: 1 on 02/20/2020 by Jun Mancilla MD at [facility] Explanted:Qty: 1 on 04/06/2023 by Augustin Woodruff MD at [facility] Left: Chest [employer] 03/26/2021 [id number] / / [id number] Description:Left Internal Ju gular Procedures Procedure Name Priority Date/Time Associated Diagnosis Comments DEXA AXIAL SKELETON BONE DENSITY 1 OR MORE SITES Schedule Routine, Read Routine (OP Routine) 11/13/2023 3:34 PM SYRUP MACHINE LABORER Postmenopausal osteoporosis from Last 3 Months or Most Recently Relevant to Health Maintenance Results * Dexa Axial Skeleton Bone Density 1 or 2 Site (11/13/2023 3:34 PM SYRUP MACHINE LABORER) Anatomical Region Laterality Modality Body N/A Mammography 11/13/2023 7:18 PM SYRUP MACHINE LABORER Narrative 11/13/2023 7:20 PM SYRUP MACHINE LABORER EXAM DESCRIPTION: DEXA AXIAL SKELETON BONE DENSITY 1 OR MORE SITES REASON FOR STUDY: 68 y/o year old F with given history of: loss of bone density due to aromatase inhibitor therapy Voice Network Engineer/Model: [employer] A (S/N [id number]) CLINICAL INFORMATION: Current height: 64 inches Maximum height: 65 inches Weight: 210 pounds Risk factors: Postmenopausal, parental hip fracture, steroid use, cancer COMPARISON: None available FINDINGS: AP LUMBAR SPINE L1-L4: Total BMD is 1.093 g/cm2 T-score is 0.4 LEFT HIP: Total BMD is 0.868 g/cm2 T-score is -0.6 Femoral neck BMD is 0.685 g/cm2 T-score is -1.5 FRAX: 10 year risk for a major osteoporotic fracture is 23 %, 10 year risk for a hip fracture is 2.6 % IMPRESSION: Low Bone Mass. REFERENCE: Bone mineral density: Normal (T-score above or = -1.0) Low bone mass (T-score between -1.0 and -2.5) replaces the previously used term osteopenia Osteoporosis (T-score = or below -2.5) Medical evaluation for secondary causes of low bone mineral density may be appropriate. FRAX is a World Health Organization validated fracture risk assessment tool that calculates a person's 10 year probability of a major osteoporosis related fracture and hip fracture. According to the National Osteoporosis Foundation guidelines, postmenopausal women and men age 50 or older with low bone mass and a 10 year probability of a major osteoporosis related fracture = or greater than 20% or a 10 year probability of a hip fracture = or greater than 3% should be considered for treatment. For further information, including treatment recommendations, please refer to the 2019 ISCD Official Positions (http://www.iscd.org) and the NOF's Clinician's Guide to Prevention and Treatment of Osteoporosis (http://www.nof.org/professionals/clinical-guidelines) THIS IS AN ELECTRONICALLY VERIFIED FINAL REPORT 11/13/2023 7:20 PM - Electronically signed by Nathanael Bojorquez M.D. MF: [id number] Report ID: [id number] Reading Location: [place] [address] Procedure Note Nathanael Bojorquez MD - 11/13/2023 EXAM DESCRIPTION: DEXA AXIAL SKELETON BONE DENSITY 1 OR MORE SITES REASON FOR STUDY: 68 y/o year old F with given history of: loss ofbone density due to aromatase inhibitor therapy Voice Network Engineer/Model: [employer] A (S/N [id number]) CLINICAL INFORMATION: Current height: 64 inches Maximum height: 65 inches Weight: 210 pounds Risk factors: Postmenopausal, parental hip fracture, steroid use, cancer COMPARISON: None available FINDINGS: AP LUMBAR SPINE L1-L4: Total BMD is 1.093 g/cm2 T-score is 0.4 LEFT HIP: Total BMD is 0.868 g/cm2 T-score is -0.6 Femoral neck BMD is 0.685 g/cm2 T-score is -1.5 FRAX: 10 year risk for a major osteoporotic fracture is 23 %, 10 year risk for ahip fracture is 2.6 % IMPRESSION: Low Bone Mass. REFERENCE: Bone mineral density: Normal (T-score above or = -1.0) Low bone mass (T-score between -1.0 and -2.5) replaces thepreviously used term osteopenia Osteoporosis (T-score = or below -2.5) Medical evaluation for secondary causes of low bone mineral density may be appropriate. FRAX is a World Health Organization validated fracture risk assessmenttool that calculates a person's 10 year probability of a major osteoporosisrelated fracture and hip fracture. According to the National OsteoporosisFoundation guidelines, postmenopausal women and men age 50 or older with low bonemass and a 10 year probability of a major osteoporosis related fracture = or greater than 20% or a 10 year probability of a hip fracture = or greaterthan 3% should be considered for treatment. For further information, including treatment recommendations, please referto the 2019 ISCD Official Positions (http://www.iscd.org) and the NOF's Clinician's Guide to Prevention and Treatment of Osteoporosis (http://www.nof.org/professionals/clinical-guidelines) THIS IS AN ELECTRONICALLY VERIFIED FINAL REPORT 11/13/2023 7:20 PM - Electronically signed by Nathanael Bojorquez M.D. MF: [id number] Report ID: [id number] Reading Location: [id number] Martha Martinez NP IMG DXA PROCEDURES F inal Result from Last 3 Months or Most Recently Relevant to Health Maintenance Insurance FOR LIFE MEDICARE MEDICARE FOR LIFE FOR LIFE MEDICARE FOR LIFE MEDICARE [facility] FOR LIFE Advance Directives For more information, please contact: [phone] Documents on File Type Date Recorded Patient Molecular Geneticist Expl anation ADVANCE DIRECTIVE 12/24/2019 10:58 AM ADVANCE DIRECTIVE 12/24/2019 10:53 AM * Full Code (Latest Code Status on File) Date Activated Date Inactivated Comments 02/01/2020 2:06 PM 02/03/2020 1:42 PM * Full Code Date Activated Date Inactivated Comments 01/08/2020 11:12 AM 01/10/2020 4:02 PM Care Teams Aviation Metalsmith Relationship Specialty Start Date End Date Zachary Cabral DO [address] [place] [address] PCP - General Internal Medicine 11/07/24 Doug Brito MD [address] [facility] [address] [place] [address] Referring Physician Plastic Surgery 01/08/20 Jun Mancilla MD [address] [facility] [address] [place] [address] Surgeon General Surgery 02/20/20 [place] [address] [place] [address] Surgeon Surgical Oncology 07/17/20 Martha Martinez NP [address] [place] [address] [address] [place] [address] Nurse Practitioner Medical Oncology 03/28/22 Augustin Woodruff MD [address] [place] [address] [address] [place], [place] [phone] Consulting Physician General Surgery 04/06/23 Patricia Khoury MD [address] [place] [address] [address] [place], [place] [id number] Radiation Oncologist Radiation Oncology 03/26/24
--- OUTSIDE RECORDS SUMMARY | 2025-04-04 16:11 | XMS_ITS | Clinical Summary ---
Author Organization [facility] Address [address] [place] [address] Care Team Providers Care Acidizer Name Role Phone Cristóbal Spence PA-C Primary Care Provider Allergies Active Allergy Reactions Criticality Noted Date Comments Amitriptyline Swelling Medium 12/24/2019 Azathioprine Other (see comment),Unknown Low 09/18/2013 Gastrointestinal bleeding Bupropion Other (see comment),Unknown 12/10/2019 Suicidal Ideation Suicidal thoughts Duloxetine Swelling Medium 12/10/2019 Methotrexate Other (see comment),Swelling Medium 12/10/2019 GI Bleeding Pregabalin Swelling Medium 12/10/2019 Tape Other (see comment),Rash High 09/11/2019 Reaction: Unknown, Medications citalopram (CELEXA) 10 MG tablet Take 1 tablet (10 mg total) by mouth daily. Active citalopram (CELEXA) 20 MG tablet Take 1.5 tablets (30 mg total) by mouth daily. Active anastrozole (ARIMIDEX) 1 MG tablet Take 1 tablet by mouth daily. 2 Active azelastine (ASTELIN) 0.1 % nasal spray USE 1 SPRAY IN EACH NOSTRIL EVERY 12 HOURS DIRECTED 2 Active calcium, elemental, 600 MG tablet Take 2 tablets (1,200 mg total) by mouth daily. Active carboxymethylce llulose (REFRESH PLUS) 0.5 % Solution ophthalmic solution Apply 1 drop to eye. Active cetirizine (ZYRTEC) 10 MG tablet Active Cholecalciferol 250 MCG (72024 UT) Tab daily. Active clonazePAM (KLONOPIN) 0.5 MG tablet Take 1 tablet (0.5 mg total) by mouth daily. 3 Active cromolyn (OPTICROM) 4 % ophthalmic solution Apply 1 drop to eye 2 (two) times daily. Active cyclobenzaprine (FLEXERIL) 10 MG tablet Take 1 tablet (10 mg total) by mouth 2 (two) times daily. Active omeprazole (PRILOSEC) 40 MG capsule Take 1 capsule (40 mg total) by mouth daily. Active guaiFENesin ER (MUCINEX) 600 MG 12 hr tablet Take 1 tablet (600 mg total) by mouth 2 (two) times daily. Active HYDROcodone-jody taminophen (NORCO) 5-325 MG tablet Take 1 tablet by mouth. Active levothyroxine (SYNTHROID) 75 MCG tablet Take 1 tablet (75 mcg total) by mouth daily. Active Lidocaine HCl 2 % Cream Apply 1 Dose topically. Active NIFEdipine ER (ADALAT CC) 90 MG 24 hr tablet Take 1 tablet (90 mg total) by mouth daily. Active olopatadine (PATADAY) 0.2 % Solution Apply 1 drop to eye daily. Active propranolol LA (INDERAL LA) 160 MG 24 hr capsule Take 1 capsule (160 mg total) by mouth daily. 2 Active rOPINIRole (REQUIP) 0.5 MG tablet Take 1 tablet (0.5 mg total) by mouth daily. Active simvastatin (ZOCOR) 10 MG tablet Take 1 tablet (10 mg total) by mouth daily. Active triamcinolone (KENALOG) 0.1 % ointment Apply topically 2 (two) times daily. 2 Active zolpidem (AMBIEN) 5 MG tablet Take 1 tablet (5 mg total) by mouth. Active losartan (COZAAR) 100 MG tablet Take 1 tablet (100 mg total) by mouth daily. Active diclofenac sodium (VOLTAREN) 1 % gel Apply topically 4 (four) times daily. Active fluticasone propionate (FLONASE) 50 MCG/ACT nasal spray 2 sprays by Each Nostril route 2 (two) times daily. 4 Active lidocaine (XYLOCAINE) 5 % ointment Apply topically 3 (three) times daily. 4 Active loteprednol (LOTEMAX) 0.5 % ophthalmic suspension Place 1 drop into both eyes 4 (four) times daily. 4 Active MOUNJARO 2.5 MG/0.5ML injection Inject 2.5 mg into the skin every 7 days. 4 Active Social History Tobacco Use Types Packs/Day Years Used Date Smoking Tobacco: Never Smokeless Tobacco: Never Tobacco Cessation:Counseling Given: No Alcohol Use Standard Drinks/Week Comments Never 0 (1 standard drink = 0.6 oz pur e alcohol) PHQ-2 Answer Date Recorded Patient Health Questionnaire-2 Score 0 04/11/2024 Comments No Sex and Gender Information Value Date Recorded Sex Assigned at Not on file Legal Sex Female 11:15 PM CDT Gender Identity Not on file Sexual Orientation Not on file Last Filed Vital Signs Vital Sign Reading Time Taken Comments Blood Pressure 91/59 04/11/2024 9:49 AM CDT Pulse 78 04/11/2024 9:49 AM CDT Temperature 36.3 C (97.3 F) 04/11/2024 9:49 AM CDT Respiratory Rate - - Oxygen Saturation - - Inhaled Oxygen Concentration - - Weight 97.3 kg (214 lb 6.4 oz) 04/11/2024 9:49 A M CDT Height 165.1 cm (5' 5 ) 04/11/2024 9:49 AM CDT Body Mass Index 35.68 04/11/2024 9:49 AM CDT Plan of Treatment Health Maintenance Due Date Last Done Comments Colorectal Cancer Screening Colonoscopy (10 Years) 1956 Hepatitis C 1974 DTaP, Tdap and Td Vaccines ( 1 - Tdap) 1975 Zoster Vaccines (1 of 2) 2006 Annual Medicare Wellness Visit 2021 Pneumococcal Vaccine: 50+ Years (2 of 2 - PCV) 09/03/2021 09/03/2020 Mammogram Screening 10/22/2021 10/22/2019, 10/16/2019 COVID-19 Vaccine (3 - 2023-2 5 season) 2024 03/19/2021, 02/19/2021 PHQ-2 (Physician [facility]) 11/27/2024 04/11/2024 RSV Immunization or 60+ Years (1 - 1-dose 75+ series) 2031 Dexa Scan (General) Completed 11/13/2023, 11/13/2023 Meningococcal B Vaccine Aged Out No l onger eligible based on patient's age to complete this topic Meningococcal Vaccine Aged Out No bashir zach eligible based on patient's age to complete this topic RSV Immunizations Under 20 Months Aged Out No longer eligible b ased on patient's age to complete this topic Procedures Procedure Name Priority Date/Time Associated Diagnosis Comments MG DIAGNOSTIC RT DIGI Routine 10/22/2019 1:11 PM CERAMIC ENGINEER Breast mass, right from Last 3 Months or Most Recently Relevant to Health Maintenance Results * MG DIAGNOSTIC RT DIGI (10/22/2019 1:11 PM CERAMIC ENGINEER) Anatomical Region Laterality Modality Breast Right Mammography 10/22/2019 1:31 PM CERAMIC ENGINEER Impressions 10/22/2019 1:40 PM CERAMIC ENGINEER =====IMPRESSION:===== Status post biopsy of right breast mass with clip placement. ASSESSMENT: ACR BI-RADS Category 2 - Benign. RECOMMENDATION: 1: Routine screening mammogram bilateral in 1 year Narrative 10/22/2019 1:40 PM CERAMIC ENGINEER EXAMINATION: Digital right diagnostic mammogram EXAM DATE/TIME: 10/22/2019 1:05 PM REASON FOR EXAM: Right breast mass in the upper inner quadrant. Status post core biopsy and clip placement. COMPARISON: 10/16/2019 TECHNIQUE: Digital diagnostic mammography of the right breast was performed. This study was read with the assistance of a computer-aided detection system. TISSUE DENSITY: The breast tissue is heterogeneously dense. FINDINGS: Postbiopsy images redemonstrate a dense mass of the right breast upper inner quadrant. Core biopsy changes with lucent biopsy tract. The biopsy clip projects within the targeted mass. Architectural distortion of the surrounding tissues is noted. Augustin Woodruff MD MAMMO Final Res ult from Last 3 Months or Most Recently Relevant to Health Maintenance Insurance [facility] Care Teams Acidizer Relationship Specialty Start Date End Date Cristóbal Spence PA-C [address] [facility] [address] [place] [address] PCP - General PHYSICIAN TOP FORMER 04/11/24
--- OUTSIDE RECORDS SUMMARY | 2025-04-04 16:11 | XMS_ITS | Encounter Summary ---
Author Organization [facility] Address [address] [place] [address] Phone Care Team Providers Care Audiology Doctor Name Role Phone Sherine Alysa Romina ORDOÑEZ Primary Care Provider [phone] Doug Brito MD Unavailable + [phone] Jun Mancilla MD Unavailable [phone] Fabiola Garrison MD Unavailable [phone] Shaye Kim MD Unavailable [phone] Franklin Krishnamurthy MD Unavailable Dena Gill MD Unavailable [phone] Rashad Gama MD Unavailable + [phone] Sherine Alysa Romina ORDOÑEZ Primary Care Provider [phone] Patricia Khoury MD Unavailable [phone] Rashad Gama MD Unavailable + [phone] Cristóbal Spence Primary Care Provider Martha Martinez NP Unavailable + [phone] Sherine Alysa Romina ORDOÑEZ Primary Care Provider [phone] Cristbóal Spence Primary Care Provider Augustin Woodruff MD Unavailable [phone] Patricia Khoury MD Unavailable Zachary Cabral DO Primary Care Provider [phone] Encounter Details Date Type Department Care Team (Latest Contact Info) Description 10/14/2020 Orders Only [facility] Scanning, Provider Social History Tobacco Use Types Packs/Day Years Used Date Smoking Tobacco: Never Smokeless Tobacco: Never Alcohol Use Standard Drinks/Week Comments No 0 (1 standard drink = 0.6 oz pur e alcohol) Comments No Sex and Gender Information Value Date Recorded Sex Assigned at Not on file 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 Gender Identity Not on file Sexual Orientation Not on file documented as of this encounter Plan of Treatment Not on file documented as of this encounter Procedures Procedure Name Priority Date/Time Associated Diagnosis Comments SCAN - RADIOLOGY/IMAGING 10/14/2020 documented in this encounter Results * SCAN - RADIOLOGY/IMAGING (10/14/2020) Anatomical Region Laterality Modality Other us Provider Scanning Final Result documented in this encounter Visit Diagnoses Not on filedocumented in this encounter Additional Health Concerns Infection Onset Date Last Indicated Resolved Time COVID: Suspected 06/15/2023 06/15/2023 06/15/2023 5:49 PM CDT documented as of this encounter Care Teams Audiology Doctor Relationship Specialty Start Date End Date Alysa Basurto DO PCP - General Family Medicine 12/10/19 11/08/21 Alysa Basurto DO PCP - General 11/11/21 03/27/22 Cristóbal Spence PA [address] [facility] [address] [address] PCP - General Physician Bilingual Customer Service 03/28/22 04/27/22 Alysa Basurto DO PCP - General 04/28/22 07/17/22 Cristóbal Spence PA [address] [place] [address] PCP - General Physician Bilingual Customer Service 07/18/22 11/06/24 Zachary Cabral DO [address] [place] [address] PCP - General Internal Medicine 11/07/24 Doug Brito MD [address] [facility] [address] [place] [address] Referring Physician Plastic Surgery 01/08/20 Jun Mancilla MD [address] [facility] [address] [place] [address] Surgeon General Surgery 02/20/20 Fabiola Garrison MD [address] [facility] [address] [place] [address] Radiation Oncologist Radiation Oncology 07/17/20 Shaye Kim MD [address] [address] Surgeon Surgical Oncology 07/17/20 Franklin Krishnamurthy MD [address] [address] Consulting Physician Medical Oncology 10/04/20 03/27/22 Dena Gill MD [address] [place] [address] Radiation Oncology 01/19/21 02/22/21 Rashad Gama MD [address] [place] [address] Consulting Physician Radiation Oncology 02/23/21 Patricia Khoury MD [address] [place] [address] Radiation Oncologist Radiation Oncology 03/23/22 Rashad Gama MD [address] [place] [address] Radiation Oncologist Radiation Oncology 03/23/22 2 [place] [address] [place] [address] [id number] Nurse Practitioner Medical Oncology 03/28/22 [place] [address] [place] [address] [address] [place], [place] [id number] Consulting Physician General Surgery 04/06/23 Patricia Khoury MD [address] [place] [address] [address] [place], [place] [address] Radiation Oncologist Radiation Oncology 03/26/24 documented as of this encounter
--- OUTSIDE RECORDS SUMMARY | 2025-04-04 16:11 | XMS_ITS | Continuity of Care Document ---
Author Organization [facility] Address [address] [place] [address] Phone Care Team Providers Care Aircraft Structural Repairer Name Role Phone Wilmer VIEYRA, Jennifer Unavailable Unavail able Allergies, Adverse Reactions, Alerts Substance Reaction Status Criticality adhesive tape Active No Information Medications Medication Instructions Dosage Effective Dates (start - stop) Status Comments levothyroxine 125 mcg capsule take 1 capsule by oral route every day 125 MCG - Active losartan 100 mg tablet take 1 tablet by oral route every day 100 MG - Active anastrozole 1 mg tablet take 1 tablet by oral route every day 1 MG - Active citalopram 10 mg tablet take 1 tablet by oral route every day 10 MG - Active nifedipine ER 90 mg tablet,extended release take 1 tablet by oral route every day 90 MG - Active propranolol ER 160 mg capsule,24 hr,extended release take 1 capsule by oral route every day 160 MG - Active Jardiance 25 mg tablet take 1 tablet by oral route every day in the morning 25 MG - Active simvastatin 10 mg tablet take 1 tablet by oral route every day in the evening 10 MG - Active ropinirole 0.5 mg tablet take 1 tablet by oral route 3 times every day 0.5 MG - Active omeprazole 40 mg capsule,delayed release take 1 capsule by oral route every day before a meal 40 MG - Active Flexeril 10 ORAL - Active metformin 500 mg tablet take 1 tablet by oral route 2 times every day with morning and evening meals 500 MG - Active Mucinex D 60 mg-600 mg tablet,extended release - Active zolpidem 5 mg tablet take 1 tablet by oral route every day at bedtime 5 MG - Active clonazepam 0.5 mg tablet take 1 tablet by oral route 3 times every day 0.5 MG - Active azelastine 137 mcg (0.1 %) nasal spray aerosol spray 2 spray by intranasal route 2 times every day in each nostril 274 MCG - Active Voltaren Arthritis Pain 1 % topical gel apply 2 gram by topical route 4 times every day to the affected area(s) 2.00 gram - Active lidocaine 5 % topical ointment apply by topical route 1 - 4 times every day to affected area(s) as needed 0.00 - Active Her 500 mg magnesium tablet - Active Procedures Procedure Date Drain/inject major joint or bursa Drain/inject major joint or bursa X-ray exam of knee, 1or 2 views 024 X-ray exam of knee, 1or 2 views 024 Office/outpatient visit,[facility] 2023 DepoMedrol 1mg Advance Directives Directive Yes / No Effective Date File Name No Information Encounters Encounter Description Practice Location Reason(s) For Visit Diagnoses Date Provider Providers Copied on Encounter [facility], [address], [place], [place], [id number], tel:[phone] Picher - Walk-in No Information Sep- 4 Kelin Rodriguez. [address] [facility], [place], [id number] , [place]. tel:[phone] Referring Provider: Jennifer Pimentel, [address], [place], [address] . tel:[phone] Office/outpa tient visit,[facility], [address], [place], [place], [id number], tel:[phone] Picher - Walk-in knee (chief complaint) Acute pain of left kneeAcute pain of right kneeContusion of right knee, initial encounterBilatera l primary osteoarthritis of knee Sep- 4 Kelin Rodriguez. [address], [place], [place], [id number] , [place]. tel:[phone] Referring Provider: Jennifer Pimentel, [address], [place], [address] . tel:[phone] Family History Family Member Type Diagnosis Age At Onset Problem Family history of Congestive heart failure Problem Family history of Stroke Problem Family history of Hypertensi on Payers Payer name Insurance type Covered republican ID Authoriza tibeth(s) MEDICARE MB [id number] [facility] [employer] [id number] Social History Type Description Quantity Date Captured Comments Sex Female Smoking Status No Information Chief Complaint And Reason For Visit No Information Reason For Referral Reason For Referral No Information Plan Of Treatment Date Type Action Status Referral Ordered: X-ray exam of knee, 1or 2 views RT knee ordered Referral Ordered: X-ray exam of knee, 1or 2 views LT knee ordered History Of Present Illness Encounter Date Complaint History Of Prese nt Illness knee Lakia Graham is a 69 year old female. Here for evaluation of both knees for 2 months, R worse then L. She is s/p CSI in 02/2024 for iveth knee OA. She offers steroids has started waning off 2 months ago. Also, Pt offers he fell on his R knee 2 weeks ago and again 2 days ago. She would like Steroids shot again. Functional Status Date Functional Assessmen t No Information Instructions Date Instruction Additional Infor jennifer 1 Protection, Rest, Icing, Compression, Elevation2 Avoid painful activities3 Depo Medrol 40 mg IA stat in both knees4 Recommended to go to PT once she gets back in [place].5 All questions were answered and Pt voiced understanding Related to Bilateral primary osteoarthritis of knee 1 Protection, Rest, Icing, Compression, Elevation2 Avoid painful activities3 Depo Medrol 40 mg IA stat in both knees4 Recommended to go to PT once she gets back in [place].5 All questions were answered and Pt voiced understanding Related to Contusion of right knee, initial encounter Assessments Type Assessment Date No Information Patient Care Teams Name Effective Dates (start - stop) Status Members No Information
--- OUTSIDE RECORDS SUMMARY | 2025-04-04 16:11 | XMS_ITS | Encounter Summary ---
Author Organization [facility] Address [address] [place] [address] Phone Care Team Providers Care Supervisor Grower Name Role Phone Sherine Alysa Romina ORDOÑEZ Primary Care Provider [phone] Doug Brito MD Unavailable + [phone] Jun Mancilla MD Unavailable [phone] Fabiola Garrison MD Unavailable [phone] Shaye Kim MD Unavailable [phone] Franklin Krishnamurthy MD Unavailable Dena Gill MD Unavailable [phone] Rashad Gama MD Unavailable + [phone] Sherine Alysa Romina ORDOÑEZ Primary Care Provider [phone] Patricia Khoury MD Unavailable [phone] Rashad Gama MD Unavailable + [phone] Cristóbal Spence Primary Care Provider Martha Martinez NP Unavailable + [phone] Sherine Alysa Romina ORDOÑEZ Primary Care Provider [phone] Cristóbal Spence Primary Care Provider Augustin Woodruff MD Unavailable [phone] Patricia Khoury MD Unavailable Zachary Cabral DO Primary Care Provider [phone] Encounter Details Date Type Department Care Team (Latest Contact Info) Description 10/20/2020 Orders Only [facility] Scanning, Provider Social History Tobacco Use Types Packs/Day Years Used Date Smoking Tobacco: Never Smokeless Tobacco: Never Alcohol Use Standard Drinks/Week Comments No 0 (1 standard drink = 0.6 oz pur e alcohol) Comments No Sex and Gender Information Value Date Recorded Sex Assigned at Not on file 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 Gender Identity Not on file Sexual Orientation Not on file documented as of this encounter Plan of Treatment Not on file documented as of this encounter Procedures Procedure Name Priority Date/Time Associated Diagnosis Comments SCAN - RADIOLOGY/IMAGING 10/20/2020 documented in this encounter Results * SCAN - RADIOLOGY/IMAGING (10/20/2020) Anatomical Region Laterality Modality Other us Provider Scanning Final Result documented in this encounter Visit Diagnoses Not on filedocumented in this encounter Additional Health Concerns Infection Onset Date Last Indicated Resolved Time COVID: Suspected 06/15/2023 06/15/2023 06/15/2023 5:49 PM CDT documented as of this encounter Care Teams Supervisor Grower Relationship Specialty Start Date End Date Alysa Basurto DO PCP - General Family Medicine 12/10/19 11/08/21 Alysa Basurto DO PCP - General 11/11/21 03/27/22 Cristóbal Spence PA [address] [facility] [address] [address] PCP - General Physician Roll Up Guider Operator 03/28/22 04/27/22 Alysa Basurto DO PCP - General 04/28/22 07/17/22 Cristóbal Spence PA [address] [place] [address] PCP - General Physician Roll Up Guider Operator 07/18/22 11/06/24 Zachary Cabral DO [address] [place] [address] PCP - General Internal Medicine 11/07/24 Doug Brito MD [address] [facility] [address] [place] [address] Referring Physician Plastic Surgery 01/08/20 Jun Mancilla MD [address] [facility] [address] [place] [address] Surgeon General Surgery 02/20/20 Fabiola Garrison MD [address] [facility] [address] [place] [address] Radiation Oncologist Radiation Oncology 07/17/20 Shaye Kim MD [address] [address] Surgeon Surgical Oncology 07/17/20 Franklin Krishnamurthy MD [address] [address] Consulting Physician Medical Oncology 10/04/20 03/27/22 Dena Gill MD [address] [place] [address] Radiation Oncology 01/19/21 02/22/21 Rashda Gama MD [address] [place] [address] Consulting Physician Radiation Oncology 02/23/21 Patricia Khoury MD [address] [place] [address] Radiation Oncologist Radiation Oncology 03/23/22 Rashad Gama MD [address] [place] [address] Radiation Oncologist Radiation Oncology 03/23/22 2 [place] [address] [place] [id number] Nurse Practitioner Medical Oncology 03/28/22 [place] [address] [place] [address] [address] [place], [place] [id number] Consulting Physician General Surgery 04/06/23 Patricia Khoury MD [address] [place] [address] [address] [place], [place] [address] Radiation Oncologist Radiation Oncology 03/26/24 documented as of this encounter
--- OUTSIDE RECORDS SUMMARY | 2025-04-04 16:11 | XMS_ITS | Encounter Summary ---
Author Organization [facility] Address [address] [place] [address] Care Team Providers Care Can Tender Name Role Phone Sherine Alysamakayla Vanegas DO Primary Care Provider +[phone] Doug Brito MD Unavailable + [phone] Brielle Prakash MD PhD Unavailable +[phone] Jun Mancilla MD Unavailable +[phone] Fabiola Garrison MD Unavailable +[phone] Shaye Kim MD Unavailable +[phone] Franklin Krishnamurthy MD Unavailable Dena Gill MD Unavailable +[phone] Rashad Gama MD Unavailable + [phone] Alysa Basurto DO Primary Care Provider +[phone] Patricia Khoury MD Unavailable +[phone] Rashad Gama MD Unavailable + [phone] Cristóbal Spence Primary Care Provider Martha Martinez NP Unavailable + [phone] Sherine Alysamakayla Vanegas DO Primary Care Provider +[phone] Cristóbal Spence Primary Care Provider Augustin Woodruff MD Unavailable +[phone] Patricia Khoury MD Unavailable Zachary Cabral DO Primary Care Provider Encounter Details Date Type Department Care Team (Late st Contact Info) Description 01/11/2020 Documentation [facility] Case Management [address] [address] Damico [address] Geneva Barron RN Social History Tobacco Use Types Packs/Day Years Used Date Smoking Tobacco: Never Smokeless Tobacco: Never Alcohol Use Standard Drinks/Week Comments No 0 (1 standard drink = 0.6 oz pur e alcohol) Comments No Sex and Gender Information Value Date Recorded Sex Assigned at Not on file 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 Gender Identity Not on file Sexual Orientation Not on file documented as of this encounter Plan of Treatment Not on file documented as of this encounter Visit Diagnoses Not on filedocumented in this encounter Additional Health Concerns Infection Onset Date Last Indicated Resolved Time COVID: Suspected 06/15/2023 06/15/2023 06/15/2023 5:49 PM CDT documented as of this encounter Care Teams Can Tender Relationship Specialty Start Date End Date Alysa Basurto DO PCP - General Family Medicine 12/10/19 11/08/21 Alysa Basurto DO PCP - General 11/11/21 03/27/22 Cristóbal Spence PA [address] [place], [place] [id number] PCP - General Physician Construction Coordinator 03/28/22 04/27/22 Alysa aBsurto DO PCP - General 04/28/22 07/17/22 Cristóbal Spence PA [address] [place] [address] PCP - General Physician Construction Coordinator 07/18/22 11/06/24 Zachary Cabral DO [address] [place] [address] PCP - General Internal Medicine 11/07/24 Doug Brito MD [address] [address] Referring Physician Plastic Surgery 01/08/20 Brielle Prakash MD PhD [address] [address] Radiation Oncologist Radiation Oncology 02/10/20 Jun Mancilla MD [address] [address] Surgeon General Surgery 02/20/20 Fabiola Garrison MD [address] [address] Radiation Oncologist Radiation Oncology 07/17/20 Shaye Kim MD [address] [address] Surgeon Surgical Oncology 07/17/20 Franklin Krishnamurthy MD [address] [address] Consulting Physician Medical Oncology 10/04/20 03/27/22 Dena Gill MD [address] [place] [address] Radiation Oncology 01/19/21 02/22/21 Rashad Gama MD [address] [place] [address] Consulting Physician Radiation Oncology 02/23/21 Patricia Khoury MD [address] [place] [address] Radiation Oncologist Radiation Oncology 03/23/22 Rashad Gama MD [address] [place] [address] Radiation Oncologist Radiation Oncology 03/23/22 2 Martha Martinez NP [address] [place], [place] [address] Nurse Practitioner Medical Oncology 03/28/22 Augustin Woodruff MD [address] [place] [address] Consulting Physician General Surgery 04/06/23 Patricia Khoury MD [address] [place] [id number] Radiation Oncologist Radiation Oncology 03/26/24 documented as of this encounter
--- OUTSIDE RECORDS SUMMARY | 2025-04-04 16:11 | XMS_ITS | Encounter Summary ---
Author Organization [facility] Address [address] [address] Care Team Providers Care Gymnastic Teacher Name Role Phone Unknown, Kerennftricia Primary Care Provider Unavail able Juan Alberto Marshall MD Primary Care Provider +[phone] Lesli Zimmerman MD Primary Care Provider Alysa Basurto DO Primary Care Provider +[phone] Doug Brito MD Unavailable + [phone] Breille Prakash MD PhD Unavailable +[phone] Jun Mancilla MD Unavailable +[phone] Fabiola Garrison MD Unavailable +[phone] Shaye Kim MD Unavailable +[phone] Franklin Krishnamurthy MD Unavailable Dena Gill MD Unavailable +[phone] Rashad Gama MD Unavailable + [phone] Alysa Basurto DO Primary Care Provider +[phone] Patricia Khoury MD Unavailable +[phone] Rashad Gama MD Unavailable + [phone] Cristóbal Spence Primary Care Provider Martha Martinez NP Unavailable + [phone] Chambers, Laysa Day DO Primary Care Provider +[phone] Cristóbal Spence Primary Care Provider Augustin Woodruff MD Unavailable +[phone] Patricia Khoury MD Unavailable +[phone] Zachary Cabral DO Primary Care Provider +[phone] Encounter Details Date Type Department Care Team (Late st Contact Info) Description 03/17/2017 Orders Only [facility] ProviderNavi MD [address] [place] [address] Social History Tobacco Use Types Packs/Day Years Used Date Smoking Tobacco: Never Assessed Alcohol Use Standard Drinks/Week Comments No 0 (1 standard drink = 0.6 oz pur e alcohol) Comments Unknown Sex and Gender Information Value Date Recorded Sex Assigned at Not on file 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 Historical Provider [facility] BRUNILDA MARQUES Final Result documented in this encounter Visit Diagnoses Not on filedocumented in this encounter Additional Health Concerns Infection Onset Date Last Indicated Resolved Time COVID: Suspected 06/15/2023 06/15/2023 06/15/2023 5:49 PM CDT documented as of this encounter Care Teams Gymnastic Teacher Relationship Specialty Start Date End Date Unknown, Notinfile PCP - General 08/24/17 08/27/17 Juan Alberto Marshall MD [address] [place] [address] PCP - General 08/28/17 01/21/18 Lesli Zimmerman MD [address] [place] [address] PCP - General Family Practice 01/22/18 12/09/19 Sherine Alysa Romina, DO [address] [place] [address] PCP - General Family Medicine 12/10/19 11/08/21 Brielle Basurtoh Romina, DO [address] [place] [place] [address] PCP - General 11/11/21 03/27/22 Cristóbal Spence PA [address] [facility] [address] [place] [address] PCP - General Physician Substation Technician 03/28/22 04/27/22 Brielle Basurtoh Romina, DO [address] [place] [address] PCP - General 04/28/22 07/17/22 Cristóbal Spence PA [address] [place] [address] PCP - General Physician Substation Technician 07/18/22 11/06/24 Zachary Cabral DO [address] [place] [address] PCP - General Internal Medicine 11/07/24 Doug Brito MD [address] [facility] [address] [place] [address] Referring Physician Plastic Surgery 01/08/20 Brielle Prakash MD PhD [address] [place] [address] Radiation Oncologist Radiation Oncology 02/10/20 Jun Mancilla MD [address] [place] [address] Surgeon General Surgery 02/20/20 Fabiola Garrison MD [address] [place] [address] Radiation Oncologist Radiation Oncology 07/17/20 Shaye Kmi MD [address] [facility] [address] [place] [address] Surgeon Surgical Oncology 07/17/20 Franklin Krishnamurthy MD [address] [facility] [address] [address] Consulting Physician Medical Oncology 10/04/20 03/27/22 Dena Gill MD [address] [place] [address] Radiation Oncology 01/19/21 02/22/21 Rashad Gama MD [address] [place] [address] Consulting Physician Radiation Oncology 02/23/21 Patricia Khoury MD [address] [place] [address] Radiation Oncologist Radiation Oncology 03/23/22 Rashad Gama MD [address] [place] [address] Radiation Oncologist Radiation Oncology 03/23/22 2 Martha Martinez NP [facility] [address] Nurse Practitioner Medical Oncology 03/28/22 Augustin Woodruff MD [address] [place] [address] [address] [place], [place] [id number] Consulting Physician General Surgery 04/06/23 Patricia Khoury MD [address] [place] [address] [address] [place], [place] [id number] Radiation Oncologist Radiation Oncology 03/26/24 documented as of this encounter
--- OUTSIDE RECORDS SUMMARY | 2025-04-04 16:11 | XMS_ITS ---
Author Organization [facility] [address] Address [address] [place] [address] Care Team Providers Care Auto Design Checker Name Role Phone Doug Brito MD Unavailable +- [phone] Jun Mancilla MD Unavailable +[phone] Shaye Kim MD Unavailable +-[phone] Martha Martinez GOLF COACH Unavailable +- [phone] Augustin Woodruff MD Unavailable +[phone] Patricia Khoury MD Unavailable +[phone] Zachary Cabral DO Primary Care Provider [phone] Active Problems Problem Noted Date Diagnosed Date [...] gional lymph node staging category pN0 per [place] Joint Committee on Cancer Staging Guidelines, 7th edition 09/01/2020 Pain in right axilla 08/24/2020 Bone disorder 06/18/2020 History of malignant neoplasm of breast 06/18/20 20 retirement current use of aromatase inhibitor Persons encountering [...] right breast in female, estrogen receptor positive ([facility]) 12/10/2019 Cancer Staging:Pathologic stage from 01/22/2020:Stage IIA(pT2, pN1a, cM0, G3, ER+, MS+, HER2-) - Signed by Brielle Prakash MD PhD on 02/10/2020 Assessment & Plan (02/03/2020 9:38 AM CDT): - Tissue expanders removed as above. Follows with Oncology clinic next week. No ongoing inpatient needs. 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 Past Treatment and Therapy Plans Line Care Plan Name Start Date Discontinue Date Treatment Medications Discontinue Reason Plan Provider IV Maintenance Therapy Plan 02/26/2020 08/31/2023 No medications scheduled. Therapy Complete Yuko Feng MD Oncology Chemotherapy Treatment Plan Name Start Date Discontinue Date Treatment Medications Discontinue Reason Plan Provider Cycles TC: (DOCEtaxe l / Cyclophos phamide) 21 Day Cycles - Breast 02/26/2020 10/04/2020 cycloPHOSphamide (CYTOXAN) IVPB (vial 20 mg/mL) (J9075)DOCEtaxel (TAXOTERE) IVPB in 250 mL (vial 10mg/mL) Therapy Complete Yuko Feng MD 4 of 4 cycles started Specialty Infusion Treatment Plan Name Start Date Discontinue Date Treatment Medications Discontinue Reason Plan Provider Zoledronic Acid (ZOMETA) Infusion 08/16/2022 08/15/2023 No medications scheduled. Therapy Complete Martha Martinez NP Radiation Treatments * Course C1 RT CW 05/20/2020 - 06/26/2020 Treatment Period Energy Fraction Dose Fractions Total Dose Plans Planned RIGHT SCV 05/20/2020 - 06/26/2020 200 25 / 5,000 RT CHESTWALL 05/20/2020 - 06/26/2020 200 25 / 5,000 Reference Points Delivered Breast_R 05/20/2020 - 06/26/2020 5,000 RT SCV 05/20/2020 - 06/26/2020 5,000 Lifetime Dose Tracking * Chemical Lifetime Dose Automatic Entry Manual Entr y Fluoro Time 0.07 minutes 0.07 minutes 0 minutes cyclophosphamide 2,369.329 mg/m2 (5,040 mg) 2,369.329 mg/m2 (5,040 mg) 0 mg/m2 (0 mg) Air kerma at the reference point (Ka,r) 0.56 mGy 0.56 mGy 0 mGy
--- OUTSIDE RECORDS SUMMARY | 2025-04-04 16:11 | XMS_ITS | Encounter Summary ---
Author Organization [facility] Address [address] [place] [address] Phone Care Team Providers Care Overnight Cashier Name Role Phone Sherine Alysamakayla Vanegas DO Primary Care Provider + [phone] Doug Brito MD Unavailable + [phone] Brielle Prakash MD PhD Unavailable +[phone] Jun Mancilla MD Unavailable +[phone] Fabiola Garrison MD Unavailable +[phone] Shaye Kim MD Unavailable +[phone] Franklin Krishnamurthy MD Unavailable Dena Gill MD Unavailable +[phone] Rashad Gama MD Unavailable + [phone] SherineAlysa DO Primary Care Provider +[phone] Patricia Khoury MD Unavailable +[phone] Rashad Gama MD Unavailable + [phone] Cristóbal Spence Primary Care Provider Martha Martinez NP Unavailable + [phone] Alysa Basurto DO Primary Care Provider +[phone] Cristóbal Spence Primary Care Provider Augustin Woodruff MD Unavailable +[phone] Patricia Khoury MD Unavailable +[phone] Zachary Cabral DO Primary Care Provider [phone] Encounter Details Date Type Department Care Team (Latest Contact Info) Description 01/08/2020 Orders Only [facility] Scanning, Provider Social History Tobacco Use Types Packs/Day Years Used Date Smoking Tobacco: Never Smokeless Tobacco: Never Alcohol Use Standard Drinks/Week Comments No 0 (1 standard drink = 0.6 oz pur e alcohol) Comments No Sex and Gender Information Value Date Recorded Sex Assigned at Not on file 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 Gender Identity Not on file Sexual Orientation Not on file documented as of this encounter Plan of Treatment Not on file documented as of this encounter Procedures Procedure Name Priority Date/Time Associated Diagnosis Comments SCAN - LABS 01/08/2020 documented in this encounter Results * SCAN - LABS (01/08/2020) us Provider Scanning Final Result documented in this encounter Visit Diagnoses Not on filedocumented in this encounter Additional Health Concerns Infection Onset Date Last Indicated Resolved Time COVID: Suspected 06/15/2023 06/15/2023 06/15/2023 5:49 PM CDT documented as of this encounter Care Teams Overnight Cashier Relationship Specialty Start Date End Date Alysa Basurto DO PCP - General Family Medicine 12/10/19 11/08/21 Alysa Basurto DO PCP - General 11/11/21 03/27/22 Cristóbal Spence PA [address] [facility] [address] [place] [address] PCP - General Physician Hammer Shop Supervisor 03/28/22 04/27/22 Alysa Basurto DO PCP - General 04/28/22 07/17/22 Cristóbal Spence PA [address] [place], [place] [address] PCP - General Physician Hammer Shop Supervisor 07/18/22 11/06/24 Zachary Cabral DO [address] [place], [place] [id number] PCP - General Internal Medicine 11/07/24 Doug Brito MD [address] [facility] [address] [place] [address] Referring Physician Plastic Surgery 01/08/20 Brielle Prakash MD PhD [address] [facility] [address] [place] [address] Radiation Oncologist Radiation Oncology 02/10/20 Jun Mancilla MD [address] [facility] [address] [place] [address] Surgeon General Surgery 02/20/20 Fabiola Garrison MD [address] [facility] [address] [place] [address] Radiation Oncologist Radiation Oncology 07/17/20 Shaye Kim MD [address] [place] [id number] Surgeon Surgical Oncology 07/17/20 Franklin Krishnamurthy MD [address] [place] [address] Consulting Physician Medical Oncology 10/04/20 03/27/22 Dena Gill MD [address] [place] [address] Radiation Oncology 01/19/21 02/22/21 Rashad Gama MD [address] [place] [address] Consulting Physician Radiation Oncology 02/23/21 Patricia Khoury MD [address] [place] [address] Radiation Oncologist Radiation Oncology 03/23/22 Rashad Gama MD [address] [place] [address] Radiation Oncologist Radiation Oncology 03/23/22 2 Martha Martinez NP [address] [place] [address] Nurse Practitioner Medical Oncology 03/28/22 Augustin Woodruff MD [address] [place] [id number] Consulting Physician General Surgery 04/06/23 Patricia Khoury MD [address] [place] [id number] Radiation Oncologist Radiation Oncology 03/26/24 documented as of this encounter
--- OUTSIDE RECORDS SUMMARY | 2025-04-04 16:11 | XMS_ITS | Encounter Summary ---
Author Organization [facility] Address [address] [place] [address] Care Team Providers Care Manager Casino Name Role Phone Sherine Alysamakayla Vanegas DO Primary Care Provider +[phone] Doug Brito MD Unavailable + [phone] Brielle Prakash MD PhD Unavailable +[phone] Jun Mancilla MD Unavailable +[phone] Fabiola Garrison MD Unavailable +[phone] Shaye Kim MD Unavailable +[phone] Franklin Krishnamurthy MD Unavailable Dena Gill MD Unavailable +[phone] Rashad Gama MD Unavailable + [phone] Alysa Basurto DO Primary Care Provider +[phone] Patricia Khoury MD Unavailable +[phone] Rashad Gama MD Unavailable + [phone] Cristóbal Spence Primary Care Provider Martha Martinez NP Unavailable + [phone] Sherine Alysamakayla Vanegas DO Primary Care Provider +[phone] Cristóbal Spence Primary Care Provider Augustin Woodruff MD Unavailable +[phone] Patricia Khoury MD Unavailable Marianna Zacharymarti ORDOÑEZ Primary Care Provider [phone] Reason for Visit * Reason Comments OTV Breast Cancer RIGHT Encounter Details Date Type Department Care Team (Late st Contact Info) Description 05/27/2020 OTV [facility] Radiation Oncology [address] [place] [address] Chandana Beth MD PhD [address] [facility] [address] [facility] [address] [place] [address] Social History Tobacco Use Types Packs/Day Years Used Date Smoking Tobacco: Never Smokeless Tobacco: Never Alcohol Use Standard Drinks/Week Comments No 0 (1 standard drink = 0.6 oz pur e alcohol) Comments No Sex and Gender Information Value Date Recorded Sex Assigned at Not on file 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 Gender Identity Not on file Sexual Orientation Not on file documented as of this encounter Last Filed Vital Signs Vital Sign Reading Time Taken Comments Blood Pressure 105/80 05/27/2020 8:55 AM CDT Pulse 80 05/27/2020 8:55 AM CDT Temperature 36.2 C (97.2 F) 05/27/2020 8:55 AM CDT Respiratory Rate 20 05/27/2020 8:55 AM CDT Oxygen Saturation 97% 05/27/2020 8:55 AM CDT Inhaled Oxygen Concentration - - Weight 102.1 kg (225 lb) 05/27/2020 8:55 AM CDT Height - - Body Mass Index 37.44 03/18/2020 11:43 AM CDT documented in this encounter Nursing Notes * Wendie Ragsdale RN - 05/27/2020 8:55 AM CDT Ambulatory to exam room for otv. C\o pain in left shoulder. Takes Hydrocodone with relief. Appetitegood. documented in this encounter Plan of Treatment Not on file documented as of this encounter Visit Diagnoses Not on filedocumented in this encounter Additional Health Concerns Infection Onset Date Last Indicated Resolved Time COVID: Suspected 06/15/2023 06/15/2023 06/15/2023 5:49 PM CDT documented as of this encounter Care Teams Manager Casino Relationship Specialty Start Date End Date Alysa Basurto DO PCP - General Family Medicine 12/10/19 11/08/21 Alysa BasurtoDO PCP - General 11/11/21 03/27/22 Cristóbal Spence PA [address] [place] [address] PCP - General Physician Ship Engines Operating Engineer 03/28/22 04/27/22 Sherine Alysa DO Romina PCP - General 04/28/22 07/17/22 Cristóbal Spence PA [address] [place] [address] PCP - General Physician Ship Engines Operating Engineer 07/18/22 11/06/24 Zachary Cabral DO [address] [place] [address] PCP - General Internal Medicine 11/07/24 Doug Brito MD [address] [place] [address] Referring Physician Plastic Surgery 01/08/20 Brielle Prakash MD PhD [address] [place] [address] Radiation Oncologist Radiation Oncology 02/10/20 Jun Mancilla MD [address] [place] [address] Surgeon General Surgery 02/20/20 Fabiola Garrison MD [address] [place] [address] Radiation Oncologist Radiation Oncology 07/17/20 Shaye Kim MD [address] [facility] [address] [place] [address] Surgeon Surgical Oncology 07/17/20 Franklin Krishnamurthy MD [address] [facility] [address] [place] [address] Consulting Physician Medical Oncology 10/04/20 03/27/22 Dena Gill MD [address] [place] [address] Radiation Oncology 01/19/21 02/22/21 Rashad Gama MD [address] [place] [address] Consulting Physician Radiation Oncology 02/23/21 Patricia Khoury MD [address] [place] [address] Radiation Oncologist Radiation Oncology 03/23/22 Rashad Gama MD [address] [place] [address] Radiation Oncologist Radiation Oncology 03/23/22 2 Martha Martinez NP [address] [facility] [address] [place], [place] [address] Nurse Practitioner Medical Oncology 03/28/22 Augustin Woodruff MD [address] [facility] [address] [place], [place] [id number] Consulting Physician General Surgery 04/06/23 Patricia Khoury MD [address] [facility] [address] [place], [place] [id number] Radiation Oncologist Radiation Oncology 03/26/24 documented as of this encounter
--- OUTSIDE RECORDS SUMMARY | 2025-04-04 16:11 | XMS_ITS | Encounter Summary ---
Author Organization [facility] Address [address] [place] [address] Care Team Providers Care Improvement Leader Name Role Phone Lizette Romero NP Primary Care Provider + Cristóbal Spence PA-C Primary Care Provider [phone] Encounter Details Date Type Department Care Team (Latest Contact Info) Description 10/02/2018 Abstract [facility] Kylie Lindsay MD Social History Tobacco Use Types Packs/Day Years Used Date Smoking Tobacco: Never Assessed Comments Unknown Sex and Gender Information Value Date Recorded Sex Assigned at Not on file Legal Sex Female 11:15 PM CDT Gender Identity Not on file Sexual Orientation Not on file documented as of this encounter Plan of Treatment Not on file documented as of this encounter Visit Diagnoses Not on filedocumented in this encounter Care Teams Improvement Leader Relationship Specialty Start Date End Date Lizette Romero NP [address] [place] [address] PCP - General [facility] 10/14/19 04/10/24 Cristóbal Spence PA-C [address] [facility] [address] [place] [address] PCP - General PHYSICIAN LIGHTING DESIGNER 04/11/24 documented as of this encounter
--- OUTSIDE RECORDS SUMMARY | 2025-04-04 16:11 | XMS_ITS | Clinical Summary ---
Author Organization [facility] Address [address] [place] [address] Phone Care Team Providers Care Service Delivery Manager Name Role Phone Juan Alberto Moore Deonte DO Unavailable [phone] Provider, Not On File Primary Care Provider Unav ailable Shaye Kim MD Unavailable [phone] Allergies Active Allergy Reactions Criticality Noted Date Comments Azathioprine Unknown 07/03/2017 Medications propranolol (INDERAL LA) 160 MG CAPSULE SR 24 HRIndications:Ma lignant neoplasm of right breast in female, estrogen receptor positive, unspecified site of breast (HCC) Take by mouth. Active omeprazole (PRILOSEC) 40 MG CAPSULE DELAYED RELEASEIndicatio ns:Malignant neoplasm of right breast in female, estrogen receptor positive, unspecified site of breast (HCC) Take 40 mg by mouth. Active levothyroxine (SYNTHROID) 75 MCG TabletIndication s:Malignant neoplasm of right breast in female, estrogen receptor positive, unspecified site of breast (HCC) 75 mcg. 3 Active clonazePAM (KLONOPIN) 0.5 MG TabletIndication s:Malignant neoplasm of right breast in female, estrogen receptor positive, unspecified site of breast (HCC) 0.5 mg. 7 Active cetirizine (ZYRTEC) 10 MG TabletIndication s:Malignant neoplasm of right breast in female, estrogen receptor positive, unspecified site of breast (HCC) Take by mouth. Active guaiFENesin (MUCINEX) 600 MG TABLET SR 12 HRIndications:Ma lignant neoplasm of right breast in female, estrogen receptor positive, unspecified site of breast (HCC) Take 1,200 mg by mouth. Active simvastatin (ZOCOR) 10 MG TabletIndication s:Malignant neoplasm of right breast in female, estrogen receptor positive, unspecified site of breast (HCC) 10 mg. 3 Active HYDROcodone-acet aminophen (NORCO) 5-325 MG TabletIndication s:Malignant neoplasm of right breast in female, estrogen receptor positive, unspecified site of breast (HCC) Take 1 Tab by mouth. Active zolpidem (AMBIEN) 5 MG TabletIndication s:Malignant neoplasm of right breast in female, estrogen receptor positive, unspecified site of breast (HCC) 5 mg. 3 Active citalopram (CELEXA) 10 MG TabletIndication s:Malignant neoplasm of right breast in female, estrogen receptor positive, unspecified site of breast (HCC) Take 10 mg by mouth. Active rOPINIRole (REQUIP) 0.5 MG TabletIndication s:Malignant neoplasm of right breast in female, estrogen receptor positive, unspecified site of breast (HCC) 0.5 mg. 7 Active hydrocortisone (ANUSOL-HC) 25 MG SuppositoryIndic ations:Malignant neoplasm of right breast in female, estrogen receptor positive, unspecified site of breast (HCC) 25 mg by Rectal route. Active fluticasone (FLONASE) 50 MCG/ACT SuspensionIndica tions:Malignant neoplasm of right breast in female, estrogen receptor positive, unspecified site of breast (HCC) spray 1 - 2 spray by intranasal route every day in each nostril as needed 7 Active promethazine (PHENERGAN) 25 MG TabletIndication s:Malignant neoplasm of right breast in female, estrogen receptor positive, unspecified site of breast (HCC) 25 mg. 7 Active docusate sodium (COLACE) 100 MG CapsuleIndicatio ns:Malignant neoplasm of right breast in female, estrogen receptor positive, unspecified site of breast (HCC) 100 mg. 7 Active diclofenac sodium (VOLTAREN) 1 % GelIndications:M alignant neoplasm of right breast in female, estrogen receptor positive, unspecified site of breast (HCC) 1 %. 7 Active cromolyn (OPTICROM) 4 % SolutionIndicati ons:Malignant neoplasm of right breast in female, estrogen receptor positive, unspecified site of breast (HCC) 1 Drop. Acti ve Calcium Carbonate-Vitami n D 600-200 MG-UNIT CapsuleIndicatio ns:Malignant neoplasm of right breast in female, estrogen receptor positive, unspecified site of breast (HCC) take 1 by Oral route once 3 Active carboxymethylcel lulose sodium (EQ RESTORE TEARS) 0.5 % SolutionIndicati ons:Malignant neoplasm of right breast in female, estrogen receptor positive, unspecified site of breast (HCC) Place 1 Drop in affected eye(s). Active Cholecalciferol (VITAMIN D3) 250 MCG (63976 UT) TabletIndication s:Malignant neoplasm of right breast in female, estrogen receptor positive, unspecified site of breast (HCC) daily Acti ve cyclobenzaprine (FLEXERIL) 10 MG TabletIndication s:Malignant neoplasm of right breast in female, estrogen receptor positive, unspecified site of breast (HCC) 10 mg. 3 Active losartan (COZAAR) 100 MG TabletIndication s:Malignant neoplasm of right breast in female, estrogen receptor positive, unspecified site of breast (HCC) Take 100 mg by mouth. 8 Active olopatadine (PATADAY) 0.2 % SolutionIndicati ons:Malignant neoplasm of right breast in female, estrogen receptor positive, unspecified site of breast (HCC) 1 Drop. Acti ve Family History Medical History Relation Name Comments Heart Attack Brother 1 Hypertension Brother 1 No Known Problems Brother 2 Hypertension Brother 3 Aneurysm Father Stroke Father Hypertension Mother Stroke Mother Relation Name Status Comments Brother 1 Alive Brother 2 Alive Brother 3 Alive Father Mother Social History Tobacco Use Types Packs/Day Years Used Date Smoking Tobacco: Never Smokeless Tobacco: Never Alcohol Use Standard Drinks/Week Comments Not Currently 0 (1 standard drink = 0.6 oz pur e alcohol) PHQ-2 Answer Date Recorded PHQ-2 Score 0 11/08/2019 Sexually Active Control Partners Comments Not Currently Comments No Sex and Gender Information Value Date Recorded Sex Assigned at Not on file Legal Sex Female 9:21 AM CORPORATE TUTOR Gender Identity Not on file Sexual Orientation Not on file Last Filed Vital Signs Vital Sign Reading Time Taken Comments Blood Pressure 110/74 11/08/2019 10:04 AM CORPORATE TUTOR Pulse 84 11/08/2019 10:04 AM CORPORATE TUTOR Temperature 36.2 C (97.1 F) 11/08/2019 10:04 AM CORPORATE TUTOR Respiratory Rate 18 11/08/2019 10:0 4 AM CORPORATE TUTOR Oxygen Saturation 98% 11/08/2019 10: 04 AM CORPORATE TUTOR Inhaled Oxygen Concentration - - Weight 102.2 kg (225 lb 6.4 oz) 019 10:04 AM CORPORATE TUTOR Height 167.6 cm (5' 6 ) 11/08/2019 10:0 4 AM CORPORATE TUTOR Body Mass Index 36.38 11/08/2019 10:04 AM CORPORATE TUTOR Plan of Treatment Health Maintenance Due Date Last Done Comments Hepatitis C Virus (HCV) Screening 1955 TdaP Immunization 1955 Colonoscopy 2001 Colorectal Cancer Screening 2001 Cologuard 2006 Immunochemical Fecal Occult Blood 2006 Pneumococcal Immunization (5 0+ years) (1 of 1 - PCV) 2006 Zoster Immunization (1 of 2) 2006 Influenza Immunization (#1) 2024 SARS-COV-2 Immunization (1 - 2023- season) 2024 Respiratory Syncytial Virus (RSV) Immunization (Adult) (1 - 1-dose 75+ series) 2031 Mammogram Discontinued 10/22/2019, 10/16/2019 Hepatitis B Immunization Aged Out No longer eligible based on patient's age to complete this topic Meningococcal Immunization (ACWY) Aged Out No longer eligible based on patient's age to complete this topic Rotavirus Immunization Aged Out No lo nger eligible based on patient's age to complete this topic Insurance MEDICARE FOR LIFE Care Teams Service Delivery Manager Relationship Specialty Start Date End Date Provider, Not On File [place] PCP - General 11/01/19 Juan Alberto Moore DO Consulting Physician Oncology 11/01/19 Shaye Kim MD [place] General Surgery 11/28/19
--- OUTSIDE RECORDS SUMMARY | 2025-04-04 16:11 | XMS_ITS | Clinical Summary ---
Author Organization [facility] [address] Address [address] [place] [address] Care Team Providers Care City Bus Driver Name Role Phone Doug Brito MD Unavailable [phone] Jun Mancilla MD Unavailable [phone] Shaye Kim MD Unavailable [phone] Martha Martinez NP Unavailable [phone] Augustin Woodruff MD Unavailable [phone] Patricia Khoury MD Unavailable [phone] Zachary Cabral DO Primary Care Provider [phone] Allergies Active Allergy Reactions Criticality Noted Date [...] gional lymph node staging category pN0 per [place] Joint Committee on Cancer Staging Guidelines, 7th edition 09/01/2020 Pain in right axilla 08/24/2020 Bone disorder 06/18/2020 History of malignant neoplasm of breast 06/18/20 detention current use of aromatase inhibitor Persons encountering [...] right breast in female, estrogen receptor positive ([facility]) 12/10/2019 Cancer Staging:Pathologic stage from 01/22/2020:Stage IIA(pT2, pN1a, cM0, G3, ER+, GA+, HER2-) - Signed by Brielle Prakash MD PhD on 02/10/2020 Assessment & Plan (02/03/2020 9:38 AM CDT): - Tissue expanders removed as above. Follows with Oncology clinic next week. No ongoing inpatient needs. 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 12/10/2019 Overview (01/08/2020): Added automatically from request for surgery [id number] JOSHUA on CPAP 09/11/2019 Chronic fatigue 09/11/2019 [...] Free, Intramuscular 10/14/2019 Pneumococcal Polysaccharide PPV23 09/03/2020 Surgical History Surgery Date Site/Laterality Comments MENISCUS SURGERY 11/27/2009 - 11/26/2010 Right x2 NASAL SEPTUM SURGERY 11/27/1983 - 11/26/1984 MASTECTOMY 01/08/2020 Bilateral left was prophylactic [employer] REMOVAL 02/01/2020 Bilateral w/I&D bilateral breast VÁSQUEZ KENNEY 11/27/1985 - 11/26/1986 Left BREAST BIOPSY 10/18/2019 Right IDC CARDIAC CATHETERIZATION 11/27/2016 - 11/26/2017 CATARACT EXTRACTION W/ INTRAOCULAR LENS IMPLANT 11/27/2016 - 11/26/2017 Bilateral TOTAL ABDOMINAL HYSTERECTOMY W/ BILATERAL SALPINGOOPHORECTOMY 11/27/2012 - 11/26/2013 post menopausal bleeding OTHER SURGICAL HISTORY 01/08/2020 Right hematoma evac (after mastectomy) TONSILLECTOMY 11/27/1969 - 11/26/1970 OVARIAN CYSTECTOMY 11/27/1974 - 11/26/1975 BREAST EXCISIONAL BIOPSY 11/27/2002 - 11/26/2003 Left benign SENTINEL LYMPH NODE BIOPSY 01/08/2020 Right PORTACATH PLACEMENT 11/27/2019 - 11/26/2020 Left BREAST BIOPSY 10/22/2019 Right Medical History Medical History Date Comments Fibrositis Fibromyalgia Adiposity GERD (gastroesophageal reflux disease) Hypothyroidism Depression Anxiety Polymyalgia rheumatica Shoulder fracture, right 05/29/2020 Breast cancer (HCC) HTN (hypertension) Hyperlipidemia Family History Medical History Relation Name Comments Coronary artery disease Brother 1 Alfa Heart disease Brother 1 Alfa Macular degeneration Brother 1 Alfa Prostate cancer Brother 1 Alfa Hypertension Brother 2 Sae Bipolar disorder Brother 3 Jose Depression Brother 3 Jose Glaucoma Brother 3 Jose Hypertension Brother 3 Jose Macular degeneration Brother 3 Jose Heart attack Father Other Father Aneurysm of tho racic aorta; Stroke Father Stroke; Cause o f : Stroke Stroke Mother Stroke; Pancreatic cancer Mother's Sister Relation Name Status Comments Brother 1 Alfa Alive Brother 2 Sae Alive Brother 3 Jose Alive Father (Age 70) Mother Mother's Sister Social History Tobacco Use Types Packs/Day Years [...] on file Legal Sex Female 8:25 AM WARP CHANGER Gender Identity Not on file Sexual Orientation Not on file Obstetrics History Last Filed Vital Signs Vital Sign Reading Time Taken Comments Blood Pressure 134/82 10/29/2024 1:41 PM WARP CHANGER Pulse 72 10/29/2024 1:41 PM WARP CHANGER Temperature 36.6 C (97.9 F) 10/29/2024 1:41 PM WARP CHANGER Respiratory Rate 18 10/29/2024 1:41 PM WARP CHANGER Oxygen Saturation 98% 10/29/2024 1:41 PM WARP CHANGER Inhaled Oxygen Concentration - - Weight 77.3 kg (170 lb 6.4 oz) 10/29/2024 1:41 P M WARP CHANGER Height 165.1 cm (5' 5 ) 08/24/2023 2:29 PM CDT Body Mass Index 28.36 08/24/2023 2:29 PM CDT Plan of Treatment Health Maintenance Due Date Last Done Comments Colon Cancer Screening-Colonoscopy 1955 Depression Screening 1955 Hepatitis C Screening 1955 DTaP/Tdap/Td Vaccine (1 - Tdap) 1967 Hepatitis B Screening 1974 Zoster Vaccine (1 of 2) 1975 Breast Cancer Screening-Mammogram 10/16/2020 019 Well Visit 65+ 2021 Covid-19 Vaccine (3 - Pfizer risk series) 04/16/2021 03/19/2021, 02/19/2021 Pneumococcal vaccine 65+ (2 of 2 - PCV) 09/03/2021 1 Fall Risk Assessment 04/06/2024 04/06/2023, 03/10/20 Influenza Vaccine (Season Ended) 2025 09/03/20, 10/14/2019 Osteoporosis Screening-Bone Density Scan 11/13/2025 11/13/2023, 11/11/2021 Medical Devices Implanted Type Area Automotive Glass Specialist Device Identifier Shelf Expiration Date Model / Serial / Lot Life Cell Winston [id number] Alloderm Select [id number] Allograft Regenerative Thk.4-2.4mm Thick - [id number]$ - [id number] Implanted:Qty: 1 on 01/08/2020 by Shaye Kim MD at [facility] Breast Left: Breast [employer] 10/26/2021 [id number] / +[id number]$ / [id number] [employer] [id number] Alloderm Select [id number] Allograft Regenerative Thk.4-2.4mm Thick - [id number] - [id number] Implanted:Qty: 1 on 01/08/2020 by Shaye Kim MD at [facility] Breast Right: Breast [employer] 10/26/2021 [id number] / +[id number] / [id number] Restorative Lenses Implanted:Qty: 2 Bilateral: Eye Description:2017, 2 of each Explanted Type Area Automotive Glass Specialist Device Identifier Shelf Expiration Date Model / Serial / Lot [employer] [id number]-[id number]-T Implant Mammary Natrelle Te Smooth 933z-Fq-31-T With Fourte - [id number] - [id number] Implanted:Qty: 1 on 01/08/2020 by Shaye Kim MD at [facility] Explanted:Qty: 1 on 02/01/2020 by Doug Brito MD at [facility] Breast Left: Breast [employer] 04/08/2024 133S-MX-15 -T / [id number] / [id number] Description:Initial fill lauro unt-400cc [employer] [id number]-Wq-37-T Implant Mammary Natrelle Te Smooth 807u-Pr-60-T With Fourte - [id number] - [id number] Implanted:Qty: 1 on 01/08/2020 by Shaye Kim MD at [facility] Explanted:Qty: 1 on 02/01/2020 by Doug Brito MD at [facility] Breast Right: Breast [employer] 02/28/2024 133S-MX-15 -T / [id number] / [id number] Description:Initial fill lauro unt-400cc [employer] [id number] Powerport Mri Airguard 8fr 1 Lumen Attachable Catheter Latex Free - [id number] Implanted:Qty: 1 on 02/20/2020 by Jun Mancilla MD at [facility] Explanted:Qty: 1 on 04/06/2023 by Augustin Woodruff MD at [facility] Left: Chest [employer] 03/26/2021 [id number] / / [id number] Description:Left Internal Ju gular Procedures Procedure Name Priority Date/Time Associated Diagnosis Comments DEXA AXIAL SKELETON BONE DENSITY 1 OR MORE SITES Schedule Routine, Read Routine (OP Routine) 11/13/2023 3:34 PM WARP CHANGER Postmenopausal osteoporosis from Last 3 Months or Most Recently Relevant to Health Maintenance Results * Dexa Axial Skeleton Bone Density 1 or 2 Site (11/13/2023 3:34 PM WARP CHANGER) Anatomical Region Laterality Modality Body N/A Mammography 11/13/2023 7:18 PM WARP CHANGER Narrative 11/13/2023 7:20 PM WARP CHANGER EXAM DESCRIPTION: DEXA AXIAL SKELETON BONE DENSITY 1 OR MORE SITES REASON FOR STUDY: 68 y/o year old F with given history of: loss of bone density due to aromatase inhibitor therapy Automotive Glass Specialist/Model: nuevoStage A (S/N [id number]) CLINICAL INFORMATION: Current height: 64 inches Maximum [...] Nathanael Bojorquez M.D. MF: [email or web address] Report ID: [id number] Reading Location: [id number] Procedure Note Nathanael Bojorquez MD - 11/13/2023 EXAM DESCRIPTION: DEXA AXIAL SKELETON BONE DENSITY 1 OR MORE SITES REASON FOR STUDY: 68 y/o year old F with given history of: loss ofbone density due to aromatase inhibitor therapy Automotive Glass Specialist/Model: [employer] Horizon A (S/N [id number]) CLINICAL INFORMATION: Current height: 64 inches Maximum [...] Nathanael Bojorquez M.D. MF: [email or web address] Report ID: [id number] Reading Location: [id number] Martha Martinez NP IMG DXA PROCEDURES F inal Result from Last 3 Months or Most Recently Relevant to Health Maintenance Insurance [employer] MEDICARE MEDICARE FOR LIFE FOR LIFE MEDICARE FOR LIFE MEDICARE FOR LIFE Advance Directives For more information, please contact: [phone] Documents on File Type Date Recorded Patient Dye Range Operator Cloth Expl anation ADVANCE DIRECTIVE 12/24/2019 10:58 AM ADVANCE DIRECTIVE 12/24/2019 10:53 AM * Full Code (Latest Code Status on File) Date Activated Date Inactivated Comments 02/01/2020 2:06 PM 02/03/2020 1:42 PM * Full Code Date Activated Date Inactivated Comments 01/08/2020 11:12 AM 01/10/2020 4:02 PM Care Teams City Bus Driver Relationship Specialty Start Date End Date Zachary Cabral DO [address] [place], [place] [id number] PCP - General Internal Medicine 11/07/24 Doug Brito MD [address] [facility] [address] [place] [address] Referring Physician Plastic Surgery 01/08/20 Jun Mancilla MD [address] [facility] [address] [place] [address] Surgeon General Surgery 02/20/20 Shaye Kim MD [address] [address] Surgeon Surgical Oncology 07/17/20 Martha Martinez NP [facility] [address] [place] [address] Nurse Practitioner Medical Oncology 03/28/22 Augustin Woodruff MD [facility] [address] Consulting Physician General Surgery 04/06/23 [place] [address] [place] [address] Radiation Oncologist Radiation Oncology 03/26/24
[2025-04-04 16:38] LABS: Alanine Aminotransferase 15 U/L (6-35); Albumin Level 4.5 g/dL (3.5-5.1); Alkaline Phosphatase 71 U/L (38-126); Anion Gap 10 mmol/L (4-12); Aspartate Amino Transferase 25 U/L (14-36); Blood Urea Nitrogen 23 mg/dL (7-17); Calcium 9.8 mg/dL (8.4-10.2); Carbon Dioxide 26 mmol/L (22-30); Chloride 101 mmol/L (98-107); Cholesterol 148 mg/dL (0-200); Estimated Glomerular Filt Rate 42; Glucose 89 mg/dL (65-110); HDL Direct 44 mg/dL; Potassium 4.1 mmol/L (3.4-5.0); Sodium 137 mmol/L (137-145); Triglycerides 204 mg/dL (<150)
[2025-04-04 16:43] LABS: Hemoglobin A1C 4.8 % (<5.7)
[2025-04-04 16:49] LABS: LDL Cholesterol Direct 47 mg/dL
[2025-04-04 17:00] LABS: Free T4 Free Thyroxine 2.04 ng/dL (0.78-2.19)
[2025-04-04 17:02] LABS: Creatinine Urine 62.1 mg/dL
[2025-04-04 17:06] LABS: MALB Creatinine Ratio 12.7 mg/g (0-30); Microalbumin Urine Random 7.9 mg/L (0-16.7)
[2025-04-04 17:08] LABS: Thyroid Stimulating Hormone 0.204 uIU/mL (0.465-4.680)
== END 2025-04-04 16:08 | disposition home or self-care (01) ==
PROVIDERS: PCP Internal Medicine; Visit Provider Internal Medicine
DX: E03.9 Hypothyroidism, unspecified (principal); E11.9 Type 2 diabetes mellitus without complications; E78.5 Hyperlipidemia, unspecified
CPT/HCPCS: 36415; 80053; 80061; 82043; 83036; 84439; 84443